=== PATIENT | male | born 1955 | race Caucasian/White ===

== ENCOUNTER 2024-12-10 14:58 | Emergency (ER) | payer MEDICARE, OTHER, SELFPAY ==
[2024-12-10 15:03] VITALS: BP 206/87
[2024-12-10 15:27] VITALS: BP 174/68
[2024-12-10 15:28] VITALS: BMI 36.6
[2024-12-10 15:56] LABS: % Basophils 0.5 % (0-2); % Eosinophils 3.9 % (0-6); % Immature Granulocytes 1.5 % (0-0.5); % Lymphocytes 22.4 % (20.5-51.1); % Monocytes 9.6 % (1.7-9.3); % Neutrophils 62.1 % (42.2-75.2); Absolute Basophils 0.1 10^3/uL (0-0.2); Absolute Eosinophils 0.6 10^3/uL (0-0.7); Absolute Immature Granulocytes 0.2 10^3/uL (0-0.05); Absolute Lymphocytes 3.2 10^3/uL (1.2-3.4); Absolute Monocytes 1.4 10^3/uL (0.1-0.6); Hematocrit 46.3 % (39.0-52.0); Hemoglobin 15.8 g/dL (13.0-18.0); Mean Corp Hgb Conc. 34.1 g/dL (33.0-37.0); Mean Platelet Volume 10.5 fL (7.4-10.4); Nucleated Red Blood Cells % 0 % (-); Platelet Count 288 10^3/uL (130-400); Red Blood Cell Count 5.26 10^6/uL (4.70-6.10); Red Cell Dist. Width 13.9 % (11.5-14.5); White Blood Cell Count 14.5 10^3/uL (4.8-10.8)
[2024-12-10 15:58] LABS: ALT (SGPT) 26 U/L (0-50); AST (SGOT) 18 U/L (17-59); Albumin 3.6 g/dl (3.5-5.0); Alkaline Phosphatase 84 U/L (38-126); Blood Urea Nitrogen 23 mg/dl (9-20); Calcium 9.2 mg/dl (8.4-10.2); Carbon Dioxide 27 mmol/L (22-30); Chloride 109 mmol/L (98-107); Estimated Creatinine Clearance 110 ml/min; Glucose 122 mg/dl (70-99); Potassium 3.7 mmol/L (3.5-5.1); Sodium 141 mmol/L (135-145); Total Bilirubin 0.7 mg/dl (0.2-1.3); Total Protein 6.1 g/dl (6.3-8.2); eGFR > 60.00
[2024-12-10 16:00] VITALS: BP 156/60
--- NOTE | 2024-12-10 16:01 | ED.GENMED ---
History of Present Illness
General
Chief Complaint: Chest Pain
Source: patient
Exam Limitations: none
Time Seen by Provider: 12/10/24 15:48
History of Present Illness
History of Present Illness:
69yoM with a history of coronary artery disease s/p PCIx2, hypertension, hyperlipidemia, type 2 diabetes, obesity, MILLI presenting for evaluation of chest pain. Symptoms began around noon today while he was sitting on the couch. He reports a
non-radiating pain in his left upper chest which feels like a burning/pinching pain. Pain is intermittent and lasts 1 to 2 seconds before resolving. Nothing seems to make the pain better or worse. Specifically, he denies any exertional symptoms.
He denies any associated diaphoresis, dizziness, nausea, shortness of breath. He follows with Dr. Turner.
Past History
Past History
ED Past Medical History: Asthma, CAD, HTN, Hypercholesterolemia, Other (Sleep apnea) and Other (Chronic sinusitis); Negative [place]
ED Past Surgical History: Cardiac (PTCA with stent, 2007) and Orthopedic (Rotator cuff repair 10/2010)
Social History
Tobacco: Non-smoker
Alcohol: None
Personal:
Living: with family
Employment: Employed
Family History
Family History: Hypertension; Negative Early CAD or Sudden
Phy Exam
General Physical Exam
General Presentation: well appearing and no apparent distress
General age: appears stated age
General Skin: warm and dry
General Habitus: normal
General Mental: alert
ENT Exam
ENT Exam: normocephalic
Cardiovascular Exam
Cardiovascular Exam: no murmur, normal peripheral pulses (2+ radial pulse bilaterally) and bradycardia
Pulmonary Exam
Pulmonary Exam: lungs clear, no respiratory distress, no rales, no crackles, no rhonchi and no wheezing
Neurological Exam
Neurological Exam: alert
[place] Coma Scale
Eye Opening: Spontaneous
Verbal Response: Oriented
Motor Response: Obeys Commands
GCS Total Score: 15
Skin Exam
Skin Exam: normal color and warm/dry
Psychiatric Exam
Psychiatric Exam: normal mood/affect
Scores
Heart Score for Chest Pain Patients
STEMI patient?: No
History: Moderately Suspicious
ECG: Normal
Age: >/= 65 years
Risk Factors: >/= 3 Risk Factors or History of CAD
Troponin: </= Normal Limit
Heart Score for Chest Pain Patients: 5
Heart Score Risk: 20.3% MACE over next 6 weeks
Course
Orders/Labs/Results
Orders:
Orders
12/10/24 14:58
ECG [Electrocardiogram (*1)] Urgent
Reason for Study: Chest Pain
EKG- Treatment ONCE
12/10/24 15:24
Cardiac Monitoring- Treatment ONCE
IV Insert/Care/Rem.- Treatment PRN
O2 Therapy [RESP] Urgent
Titrate/Wean O2 to maintain O2 sat greater than (%): 90
Special Instructions: Maintain sats >/=90%
Pulse Ox/spot Check [RESP] Urgent
Quantity: 1
Special Instructions: ON ROOM AIR
12/10/24 15:34
Complete Blood Count/With Diff Urgent
Comprehensive Metabolic Panel Urgent
Troponin I Urgent
12/10/24 16:02
Cardiac Monitoring- Treatment ONCE
CR Chest - 2 Views Urgent
Comment:
Reason For Exam: CP
12/10/24 16:34
EKG- Treatment ONCE
12/10/24 18:21
Troponin I Urgent
12/10/24 18:30
Electrocardiogram (*1) Urgent
Reason for Study: Chest Pain
Abnormal Lab Results
12/10/24
15:34
WBC 14.5 H 10^3/uL
(4.8-10.8)
MPV 10.5 H fL
(7.4-10.4)
Abs Immat Gran (auto) 0.2 H 10^3/uL
(0-0.05)
Absolute Neuts (auto) 9.0 H 10^3/uL
(1.4-6.5)
Absolute Monos (auto) 1.4 H 10^3/uL
(0.1-0.6)
Immature Gran % 1.5 H %
(0-0.5)
Monocytes % 9.6 H %
(1.7-9.3)
Chloride 109 H mmol/L
(98-107)
BUN 23 H mg/dl
(9-20)
Glucose 122 H mg/dl
(70-99)
Total Protein 6.1 L g/dl
(6.3-8.2)
12/10/24 15:34
12/10/24 15:34
Vital Signs
Initial and Last Documented VS:
Initial Vital Signs
Temp Pulse Resp BP Pulse Ox
97.6 F 52 16 206/87 99
12/10/24 15:03 12/10/24 15:03 12/10/24 15:03 12/10/24 15:03 12/10/24 15:03
Last Documented Vital Signs
Temp Pulse Resp BP Pulse Ox
98.6 F 50 17 165/66 99
12/10/24 17:00 12/10/24 19:00 12/10/24 19:00 12/10/24 19:00 12/10/24 15:03
MDM/Problems Addressed
Differential Diagnosis Includes:
69yoM here with intermittent pinching L chest pain since noon today. Lasts a few seconds at a time and comes on randomly. Otherwise asymptomatic. Hx of CAD. He is hypertensive on arrival with otherwise stable vitals. He is well appearing in no
distress. Exam reassuring. Differential diagnosis includes but is not limited to: ACS, angina, musculoskeletal, nonspecific chest pain
Initial ED plan: Check cardiac labs, EKG, and CXR.
*EKG
Interpreted by ED Provider?: Yes
EKG Intrepretation Date: 12/10/24
Heart Rate: 50
Rate: bradycardiac
Rhythm: sinus
[place]: normal axis
Interval: normal interval
QRS Pattern: normal QRS
Ischemia: no ischemia
*Critical Care Note
Total Time (30-74mins, 75-104mins- exclusive of procedures): Not Applicable
Update Note
Update Note:
EKG shows sinus bradycardia without ischemic changes and troponin WNL. CXR is clear. Repeat troponin/EKG performed at 3 hours unchanged. Symptoms have completely resolved on reassessment. He is persistently bradycardic with HR in the 40-50 range. No
associated hypotension or dizziness. His heart rate was also low at his recent PCP visit. He is currently on metoprolol 25mg BID. He was advised to hold his evening dose tonight and call his ethyl blender tomorrow morning for f/u. ED return
precautions reviewed. Patient in agreement with plan and was discharged in stable condition.
ED Attending Note
-
Portions of this chart may have been created with voice recognition software.� Occasional wrong word or��sound alike� substitutions may have occurred due to the inherent limitations of voice recognition software.
Discharge Plan
Departure
Patient Disposition: Home (Routine Discharge)
Date of Disposition: 12/10/24
Time of Disposition: 19:07
Patient with high blood pressure during this ER visit?: Yes
Discharge Problem:
Chest pain, Sinus bradycardia
Instructions: Chest pain
Prescriptions:
No Action
loratadine [Claritin] 10 MG tablet
10 mg PO DAILY
multivitamin with folic acid [Tab-A-Galilea] 1 TABLET tablet
1 tab PO DAILY
amlodipine 5 MG tablet
10 mg PO DAILY
allopurinol 300 MG tablet
300 mg PO DAILY
lisinopril 40 MG tablet
40 mg PO DAILY
docosahexaenoic acid-epa 1 CAP capsule
1,000 mg PO DAILY
aspirin 81 MG tablet,chewable
81 mg PO DAILY
metoprolol tartrate 25 MG tablet
25 mg PO BID
atorvastatin 40 MG tablet
80 mg PO HS
isosorbide mononitrate 30 MG tablet extended release 24 hr
30 mg PO DAILY Qty: 30 5RF
Referrals:
Dayton Suarez MD [Family Provider] -
Activity Restrictions/Additional Instructions:
Hold your evening dose of metoprolol.
Please call your ethyl blender tomorrow for follow-up. Return to the ER with any new or worsening symptoms.
Interventions
Interventions:
*Risk Screen - Suicide Last Done: 12/10/24 15:03
*General Assessment Last Done: 12/10/24 15:03
*Neglect/Abuse Screening Last Done: 12/10/24 15:03
*Nursing Disposition Last Done: 12/10/24 19:22
ED- Cardiac Assessment Last Done: 12/10/24 17:01
Discharge Date and Time
Discharge Date/Time: 12/10/24 19:22
Print Language: YORUBA
[2024-12-10 16:10] LABS: Troponin I < 0.012 ng/ml
[2024-12-10 17:12] VITALS: BP 172/57
[2024-12-10 18:00] VITALS: BP 156/58
[2024-12-10 18:54] LABS: Troponin I < 0.012 ng/ml
[2024-12-10 19:00] VITALS: BP 165/66
== END 2024-12-10 19:22 | disposition home or self-care (01) ==
LOC: EMR 14:58
PROVIDERS: Physician Assistant; EMERGENCY PHYSICIAN Emergency Medicine; FAMILY PHYSICIAN Family Medicine
DX: R07.9 Chest pain, unspecified (principal); R00.1 Bradycardia, unspecified; I25.10 Atherosclerotic heart disease of native coronary artery without angina pectoris; E78.00 Pure hypercholesterolemia, unspecified; I10 Essential (primary) hypertension; J45.909 Unspecified asthma, uncomplicated; Z95.5 Presence of coronary angioplasty implant and graft; E11.9 Type 2 diabetes mellitus without complications; G47.33 Obstructive sleep apnea (adult) (pediatric)
CPT/HCPCS: 99285; 71046; 80053; 84484; 85025; 93005

== ENCOUNTER → 2024-12-30 07:57 | Outpatient (REF) | payer MEDICARE, OTHER, SELFPAY | LOC: HWRCS 07:57 | PROVIDERS: ATTENDING PHYSICIAN Physician Assistant Medical | DX: R07.9 Chest pain, unspecified (principal); I25.10 Atherosclerotic heart disease of native coronary artery without angina pectoris | CPT/HCPCS: 93306 ==

== ENCOUNTER 2025-01-02 15:09 | Inpatient (IN) | payer MEDICARE, OTHER, SELFPAY ==
[2025-01-02] VITALS (10 sets, daily range): BP systolic 120–191; BP diastolic 50–85; BMI 36.3
[2025-01-02 11:45] LABS: Hemoglobin 15.8 g/dL (13.0-18.0); Mean Corp Hgb Conc. 34.3 g/dL (33.0-37.0); Mean Corpuscular Hgb 30.3 pg (27.0-31.0); Mean Corpuscular Volume 88.3 fL (80.0-94.0); Mean Platelet Volume 10.3 fL (7.4-10.4); Platelet Count 404 10^3/uL (130-400); Red Blood Cell Count 5.21 10^6/uL (4.70-6.10); Red Cell Dist. Width 13.3 % (11.5-14.5); White Blood Cell Count 26.4 10^3/uL (4.8-10.8)
--- NOTE | 2025-01-02 11:56 | ED.GENMED ---
History of Present Illness
<Celestino Brower Jr., PA-C - Last Filed: 01/03/25 18:42>
General
Chief Complaint: Chest Pain
Source: patient
Exam Limitations: none
Time Seen by Provider: 01/02/25 11:44
Nursing documentation reviewed up to this point in time: agreed with
History of Present Illness
History of Present Illness:
69-year-old male past medical history of CAD status post 2 stents over a decade ago hypertension hyperlipidemia presenting to the emergency department today with concerns of a left-sided chest pressure that started this morning. Also had some
palpitations last night. He claims that his heart rates been in the 110s and low 100s since last night after taking his trash out. Denies any significant shortness of breath nausea vomiting diaphoresis. Recently started hydrochlorothiazide over
the past week and has been checking his blood pressure over the past week with pressures in the 160s over 90s. He took a baby aspirin at home. He denies any recent trauma surgery immobilization, new leg swelling history of blood clots
Past History
<Celestino Brower Jr., PA-C - Last Filed: 01/03/25 18:42>
Past History
ED Past Medical History: Asthma, CAD, HTN, Hypercholesterolemia, Other (Sleep apnea) and Other (Chronic sinusitis); Negative DE
ED Past Surgical History: Cardiac (PTCA with stent, 2007) and Orthopedic (Rotator cuff repair 10/2010)
Social History
Tobacco: Non-smoker
Alcohol: None
Personal:
Living: with family
Employment: Employed
Family History
Family History: Hypertension; Negative Early CAD or Sudden
Review of Systems
<Celestino Brower Jr., PA-C - Last Filed: 01/03/25 18:42>
Review of Systems
Allergies reviewed?: Yes
All Other Systems: ROS reviewed and negative except as documented in HPI and ROS
Phy Exam
<Celestino Brower Jr., PA-C - Last Filed: 01/03/25 18:42>
Physical Exam
Physical Exam:
GENERAL: Alert , in no apparent distress
EYE: pupils equal and reactive
NECK: Supple, no significant adenopathy.
ENT: o/p clr, mmm.
CARDIAC: Regular rate and rhythm .
LUNGS: Clear breath sounds bilaterally, no acute respiratory distress, no wheezes/rales/rhonchi
ABDOMEN: Soft, without focal tenderness, no r/g, no cvat
NEUROLOGICAL: Alert and oriented, no focal neuro deficits
SKIN: Warm and dry, skin intact.
MUSCULOSKELETAL: No edema, well perfused.
PSYCH: Normal and appropriate interaction.
Scores
<Celestino Brower Jr., PA-C - Last Filed: 01/03/25 18:42>
Heart Score for Chest Pain Patients
STEMI patient?: Not applicable
Course
<Celestino Brower Jr., PA-C - Last Filed: 01/03/25 18:42>
Orders/Labs/Results
Orders:
Orders
01/02/25 Breakfast
Clear Liquid
At Your Request: Full Participation
01/02/25 10:45
ECG [Electrocardiogram (*1)] Urgent
Reason for Study: Chest Pain
EKG- Treatment ONCE
01/02/25 11:30
O2 Therapy [RESP] Urgent
Titrate/Wean O2 to maintain O2 sat greater than (%): 90
Special Instructions: Maintain sats >/=90%
01/02/25 11:32
Complete Blood Count/With Diff Urgent
Comprehensive Metabolic Panel Urgent
Troponin I Urgent
01/02/25 11:52
EKG [Electrocardiogram (*1)] Urgent
Reason for Study: Chest Pain
EKG- Treatment ONCE
Aspirin 325 mg PO NOW STA
Chest X-ray Portable [CR Chest Portable - 1 View] Urgent
Comment:
Reason For Exam: cp
Reason Study Needs to be Portable: Patient Unstable
01/02/25 12:55
Heparin 4,000 units IV NOW STA
01/02/25 12:[address] Non Medication Order As Directed
Physician Order: PTT 6 hours after initial start of Heparin infusion
Above order entered?: Yes
01/02/25 13:00
Heparin [id number] Units/250 ml 25,000 units in 250 ml IV PER PROTOCOL
Weight to be used for heparin protocol in kilograms (kg):: 102
Protocol:: Cardiac Tx/Acute Coronary
PTT Goal Range to be used:: PTT 73 to 111 seconds
Order type:: Initial
INITIAL Infusion Dose (UNITS/KG/hr) & then follow protocol:: 12 units/kg/hr
Infusion Dose in UNITS/hr & then follow protocol (UNITS/hr):: 1,000
INFUSION RATE in mL/hr & then follow protocol (mL/hr):: 10
PTT less than or equal to 64 seconds:: Increase rate by 200 units/hr (+ 2 mL/hr)
PTT 64.1 to 72.9 seconds:: Increase rate by 100 units/hr (+ 1 mL/hr)
PTT 73 to 111 seconds:: Target Range. No change in rate.
PTT 111.1 to 130.9 seconds:: Decrease rate by 100 units/hr (- 1 mL/hr)
PTT 131 to 199.9 seconds:: HOLD for 1 hr. Then decrease rate by 200 units/hr (- 2 mL/hr)
PTT greater than or equal to 200 seconds:: HOLD for 2 hrs & Notify Provider. Then decrease by 200 units/hr (-
2 mL/hr)
Lab follow-up:: Each change, PTT q6h until 2 consecutive are therapeutic. Then PTT
daily.
01/02/25 13:08
PTT Urgent
Comment: Obtain baseline before beginning heparin infusion if not already collected
01/02/25 13:28
Metoprolol [Lopressor] 5 mg IV NOW STA
01/02/25 13:46
Electrocardiogram (*1) Urgent
Reason for Study: Chest Pain
01/02/25 13:49
Troponin I Urgent
01/02/25 14:32
0.9% Sodium Chloride 250 ml [Nss] 250 ml IV BOLUS
01/02/25 14:35
Admit/Transfer Patient As Directed
Co-Sign Provider:
Level of Care: Inpatient admission
Assign to:: Telemetry
Physician / Group: charles alaniz
Diagnosis: chest pain
Reason for Telemetry: Chest Pain syndromes
Date to Stop Telemetry: 01/04/25
Time to Stop Telemetry: 11:00
Reason for Hospitalization: chest pain
Expected length of stay greater than two midnights?: Yes
ELOS- Estimated Length of Stay in days: 3
I certify the patient meets the requirements for IP care: Yes
PRN Pain Medication Management As Directed
May give lesser potent ordered pain med per pt: Yes
preference::
Protocol:: Medication orders for pain may be administered in a
manner that supports deferring to patient preference
when the pt is:
- Requesting an ordered lesser potent pain medication.
Least to most potent pain medications are defined
as: acetaminophen < NSAID < tramadol < opioids
(morphine, oxycodone, hydromorphone).
- Requesting a lesser dose of the same medication IF
ORDERED.
- Requesting a less intrusive route of administration
if both routes are prescribed by the provider (PO <
IV).
01/02/25 14:36
Code Status As Directed
Resuscitation Status: Full Code
01/02/25 15:43
Lactic Acid Stat
01/02/25 16:28
Electrocardiogram (*1) Q6H
Reason for Study: Chest Pain
Comment: at admission and Q3H for total of 3, to be done with each troponin
Dextrose 50%-Water [Dextrose 50% Syringe] 12.5 grams IV [id number] PRN
Glucagon [GlucaGen] 1 mg IM PRN PRN
01/02/25 16:28
CARDIOLOGY CONSULT Routine
Consulting Provider: Doug Murray
Was physician already notified: Yes
Heparin Protocol- PTT Orders As Directed
PTT per Heparin protocol: -Obtain CBC and baseline PTT - if not already collected.
-Obtain PTT 6 hours from start of infusion. Then, every 6 hours until 2 consecutive
PTT's are therapeutic. Then, PTT Daily.
-With each rate change, obtain PTT every 6 hours until 2 consecutive PTT's are
therapeutic. Then, PTT Daily.
Activity As Directed
Activity Level: As Tolerated
Bedside Glucose Monitoring As Directed
Frequency: AC&HS
Additional Instructions:: Change to q6h if pt on TPN, tube feeding or not eating
INT (Intravenous Needle Therapy) As Directed
Comment: maintain peripheral IV access
Intake/ Output As Directed
Frequency: Per unit guidelines
Notify MD As Directed
Notify physician if: PTT is greater than or equal to 200.
Vital Signs As Directed
Frequency: q4h
Weight As Directed
Frequency: Daily
01/02/25 16:30
Insulin Aspart Corrective Mod [Novolog Flexpen-Moderate Resistance] See Protocol SC AC
01/02/25 17:47
Troponin I Q3H
Comment: at admit & Q3H for 3 total including ED draws, obtain ECG with each level
01/02/25 19:59
Troponin I Q3H
Comment: at admit & Q3H for 3 total including ED draws, obtain ECG with each level
01/02/25 22:00
Atorvastatin [Lipitor] 80 mg PO HS
01/02/25 23:22
Troponin I Q3H
Comment: at admit & Q3H for 3 total including ED draws, obtain ECG with each level
01/03/25 03:22
Basic Metabolic Panel IN AM
Cardiovascular Evaluation IN AM
Complete Blood Count/No Diff IN AM
Glycohemoglobin (HgbA1c) IN AM
01/03/25 04:28
Electrocardiogram (*1) Q6H
Reason for Study: Chest Pain
Comment: at admission and Q3H for total of 3, to be done with each troponin
01/03/25 08:00
Allopurinol [Zyloprim] 300 mg PO DAILY
Amlodipine [Norvasc] 10 mg PO DAILY
Aspirin Chewable [Low Strength Aspirin] 81 mg PO DAILY
Lisinopril [Zestril] 40 mg PO DAILY
01/04/25 06:00
Basic Metabolic Panel IN AM
Complete Blood Count/No Diff IN AM
Complete Blood Count/No Diff Q2D
Comment: notify provider: Platelet count < 130,000 or decrease by 50% from baseline
01/04/25 11:00
DC Protocol for Telemetry ONCE
01/05/25 06:00
Basic Metabolic Panel IN AM
Complete Blood Count/No Diff IN AM
01/06/25 06:00
Basic Metabolic Panel IN AM
Complete Blood Count/No Diff IN AM
Complete Blood Count/No Diff Q2D
Comment: notify provider: Platelet count < 130,000 or decrease by 50% from baseline
01/07/25 06:00
Basic Metabolic Panel IN AM
01/08/25 06:00
Complete Blood Count/No Diff Q2D
Comment: notify provider: Platelet count < 130,000 or decrease by 50% from baseline
01/10/25 06:00
Complete Blood Count/No Diff Q2D
Comment: notify provider: Platelet count < 130,000 or decrease by 50% from baseline
01/12/25 06:00
Complete Blood Count/No Diff Q2D
Comment: notify provider: Platelet count < 130,000 or decrease by 50% from baseline
01/14/25 06:00
Complete Blood Count/No Diff Q2D
Comment: notify provider: Platelet count < 130,000 or decrease by 50% from baseline
01/16/25 06:00
Complete Blood Count/No Diff Q2D
Comment: notify provider: Platelet count < 130,000 or decrease by 50% from baseline
01/18/25 06:00
Complete Blood Count/No Diff Q2D
Comment: notify provider: Platelet count < 130,000 or decrease by 50% from baseline
Abnormal Lab Results
01/02/25 01/02/25
11:32 13:49
WBC 26.4 H 10^3/uL
(4.8-10.8)
Plt Count 404 H 10^3/uL
(130-400)
Abs Immat Gran (auto) 0.3 H 10^3/uL
(0-0.05)
Absolute Neuts (auto) 24.1 H 10^3/uL
(1.4-6.5)
Absolute Lymphs (auto) 1.0 L 10^3/uL
(1.2-3.4)
Absolute Monos (auto) 0.9 H 10^3/uL
(0.1-0.6)
Immature Gran % 1.1 H %
(0-0.5)
Neutrophils % 91.4 H %
(42.2-75.2)
Lymphocytes % 3.8 L %
(20.5-51.1)
Chloride 108 H mmol/L
(98-107)
Carbon Dioxide 15 L mmol/L
(22-30)
BUN 35 H mg/dl
(9-20)
Glucose 283 H mg/dl
(70-99)
Troponin I 0.085 H* ng/ml 0.146 H* D ng/ml
01/02/25 11:32
01/02/25 11:32
Vital Signs
Initial and Last Documented VS:
Initial Vital Signs
Temp Pulse Resp BP Pulse Ox
97.6 F 118 22 191/85 96
01/02/25 10:52 01/02/25 10:52 01/02/25 10:52 01/02/25 10:52 01/02/25 10:52
Last Documented Vital Signs
Temp Pulse Resp BP Pulse Ox
97.8 F 56 16 142/63 96
01/03/25 16:07 01/03/25 16:07 01/03/25 16:07 01/03/25 16:07 01/03/25 16:07
<Nick Ching, DO - Last Filed: 01/02/25 13:31>
Orders/Labs/Results
Orders:
Orders
01/02/25 Breakfast
Clear Liquid
At Your Request: Full Participation
01/02/25 10:45
ECG [Electrocardiogram (*1)] Urgent
Reason for Study: Chest Pain
EKG- Treatment ONCE
01/02/25 11:30
O2 Therapy [RESP] Urgent
Titrate/Wean O2 to maintain O2 sat greater than (%): 90
Special Instructions: Maintain sats >/=90%
01/02/25 11:32
Complete Blood Count/With Diff Urgent
Comprehensive Metabolic Panel Urgent
Troponin I Urgent
01/02/25 11:52
EKG [Electrocardiogram (*1)] Urgent
Reason for Study: Chest Pain
EKG- Treatment ONCE
Aspirin 325 mg PO NOW STA
Chest X-ray Portable [CR Chest Portable - 1 View] Urgent
Comment:
Reason For Exam: cp
Reason Study Needs to be Portable: Patient Unstable
01/02/25 12:55
Heparin 4,000 units IV NOW STA
01/02/25 12:[address] Non Medication Order As Directed
Physician Order: PTT 6 hours after initial start of Heparin infusion
Above order entered?: Yes
01/02/25 13:00
Heparin [id number] Units/250 ml 25,000 units in 250 ml IV PER PROTOCOL
Weight to be used for heparin protocol in kilograms (kg):: 102
Protocol:: Cardiac Tx/Acute Coronary
PTT Goal Range to be used:: PTT 73 to 111 seconds
Order type:: Initial
INITIAL Infusion Dose (UNITS/KG/hr) & then follow protocol:: 12 units/kg/hr
Infusion Dose in UNITS/hr & then follow protocol (UNITS/hr):: 1,000
INFUSION RATE in mL/hr & then follow protocol (mL/hr):: 10
PTT less than or equal to 64 seconds:: Increase rate by 200 units/hr (+ 2 mL/hr)
PTT 64.1 to 72.9 seconds:: Increase rate by 100 units/hr (+ 1 mL/hr)
PTT 73 to 111 seconds:: Target Range. No change in rate.
PTT 111.1 to 130.9 seconds:: Decrease rate by 100 units/hr (- 1 mL/hr)
PTT 131 to 199.9 seconds:: HOLD for 1 hr. Then decrease rate by 200 units/hr (- 2 mL/hr)
PTT greater than or equal to 200 seconds:: HOLD for 2 hrs & Notify Provider. Then decrease by 200 units/hr (-
2 mL/hr)
Lab follow-up:: Each change, PTT q6h until 2 consecutive are therapeutic. Then PTT
daily.
01/02/25 13:08
PTT Urgent
Comment: Obtain baseline before beginning heparin infusion if not already collected
01/02/25 13:28
Metoprolol [Lopressor] 5 mg IV NOW STA
01/02/25 13:46
Electrocardiogram (*1) Urgent
Reason for Study: Chest Pain
01/02/25 13:49
Troponin I Urgent
01/02/25 14:32
0.9% Sodium Chloride 250 ml [Nss] 250 ml IV BOLUS
01/02/25 14:35
Admit/Transfer Patient As Directed
Co-Sign Provider:
Level of Care: Inpatient admission
Assign to:: Telemetry
Physician / Group: charles alaniz
Diagnosis: chest pain
Reason for Telemetry: Chest Pain syndromes
Date to Stop Telemetry: 01/04/25
Time to Stop Telemetry: 11:00
Reason for Hospitalization: chest pain
Expected length of stay greater than two midnights?: Yes
ELOS- Estimated Length of Stay in days: 3
I certify the patient meets the requirements for IP care: Yes
PRN Pain Medication Management As Directed
May give lesser potent ordered pain med per pt: Yes
preference::
Protocol:: Medication orders for pain may be administered in a
manner that supports deferring to patient preference
when the pt is:
- Requesting an ordered lesser potent pain medication.
Least to most potent pain medications are defined
as: acetaminophen < NSAID < tramadol < opioids
(morphine, oxycodone, hydromorphone).
- Requesting a lesser dose of the same medication IF
ORDERED.
- Requesting a less intrusive route of administration
if both routes are prescribed by the provider (PO <
IV).
01/02/25 14:36
Code Status As Directed
Resuscitation Status: Full Code
01/02/25 15:43
Lactic Acid Stat
01/02/25 16:28
Electrocardiogram (*1) Q6H
Reason for Study: Chest Pain
Comment: at admission and Q3H for total of 3, to be done with each troponin
Dextrose 50%-Water [Dextrose 50% Syringe] 12.5 grams IV [id number] PRN
Glucagon [GlucaGen] 1 mg IM PRN PRN
01/02/25 16:28
CARDIOLOGY CONSULT Routine
Consulting Provider: Doug Murray
Was physician already notified: Yes
Heparin Protocol- PTT Orders As Directed
PTT per Heparin protocol: -Obtain CBC and baseline PTT - if not already collected.
-Obtain PTT 6 hours from start of infusion. Then, every 6 hours until 2 consecutive
PTT's are therapeutic. Then, PTT Daily.
-With each rate change, obtain PTT every 6 hours until 2 consecutive PTT's are
therapeutic. Then, PTT Daily.
Activity As Directed
Activity Level: As Tolerated
Bedside Glucose Monitoring As Directed
Frequency: AC&HS
Additional Instructions:: Change to q6h if pt on TPN, tube feeding or not eating
INT (Intravenous Needle Therapy) As Directed
Comment: maintain peripheral IV access
Intake/ Output As Directed
Frequency: Per unit guidelines
Notify MD As Directed
Notify physician if: PTT is greater than or equal to 200.
Vital Signs As Directed
Frequency: q4h
Weight As Directed
Frequency: Daily
01/02/25 16:30
Insulin Aspart Corrective Mod [Novolog Flexpen-Moderate Resistance] See Protocol SC AC
01/02/25 17:47
Troponin I Q3H
Comment: at admit & Q3H for 3 total including ED draws, obtain ECG with each level
01/02/25 19:59
Troponin I Q3H
Comment: at admit & Q3H for 3 total including ED draws, obtain ECG with each level
01/02/25 22:00
Atorvastatin [Lipitor] 80 mg PO HS
01/02/25 23:22
Troponin I Q3H
Comment: at admit & Q3H for 3 total including ED draws, obtain ECG with each level
01/03/25 03:22
Basic Metabolic Panel IN AM
Cardiovascular Evaluation IN AM
Complete Blood Count/No Diff IN AM
Glycohemoglobin (HgbA1c) IN AM
01/03/25 04:28
Electrocardiogram (*1) Q6H
Reason for Study: Chest Pain
Comment: at admission and Q3H for total of 3, to be done with each troponin
01/03/25 08:00
Allopurinol [Zyloprim] 300 mg PO DAILY
Amlodipine [Norvasc] 10 mg PO DAILY
Aspirin Chewable [Low Strength Aspirin] 81 mg PO DAILY
Lisinopril [Zestril] 40 mg PO DAILY
01/04/25 06:00
Basic Metabolic Panel IN AM
Complete Blood Count/No Diff IN AM
Complete Blood Count/No Diff Q2D
Comment: notify provider: Platelet count < 130,000 or decrease by 50% from baseline
01/04/25 11:00
DC Protocol for Telemetry ONCE
01/05/25 06:00
Basic Metabolic Panel IN AM
Complete Blood Count/No Diff IN AM
01/06/25 06:00
Basic Metabolic Panel IN AM
Complete Blood Count/No Diff IN AM
Complete Blood Count/No Diff Q2D
Comment: notify provider: Platelet count < 130,000 or decrease by 50% from baseline
01/07/25 06:00
Basic Metabolic Panel IN AM
01/08/25 06:00
Complete Blood Count/No Diff Q2D
Comment: notify provider: Platelet count < 130,000 or decrease by 50% from baseline
01/10/25 06:00
Complete Blood Count/No Diff Q2D
Comment: notify provider: Platelet count < 130,000 or decrease by 50% from baseline
01/12/25 06:00
Complete Blood Count/No Diff Q2D
Comment: notify provider: Platelet count < 130,000 or decrease by 50% from baseline
01/14/25 06:00
Complete Blood Count/No Diff Q2D
Comment: notify provider: Platelet count < 130,000 or decrease by 50% from baseline
01/16/25 06:00
Complete Blood Count/No Diff Q2D
Comment: notify provider: Platelet count < 130,000 or decrease by 50% from baseline
01/18/25 06:00
Complete Blood Count/No Diff Q2D
Comment: notify provider: Platelet count < 130,000 or decrease by 50% from baseline
Abnormal Lab Results
01/02/25 01/02/25
11:32 13:49
WBC 26.4 H 10^3/uL
(4.8-10.8)
Plt Count 404 H 10^3/uL
(130-400)
Abs Immat Gran (auto) 0.3 H 10^3/uL
(0-0.05)
Absolute Neuts (auto) 24.1 H 10^3/uL
(1.4-6.5)
Absolute Lymphs (auto) 1.0 L 10^3/uL
(1.2-3.4)
Absolute Monos (auto) 0.9 H 10^3/uL
(0.1-0.6)
Immature Gran % 1.1 H %
(0-0.5)
Neutrophils % 91.4 H %
(42.2-75.2)
Lymphocytes % 3.8 L %
(20.5-51.1)
Chloride 108 H mmol/L
(98-107)
Carbon Dioxide 15 L mmol/L
(22-30)
BUN 35 H mg/dl
(9-20)
Glucose 283 H mg/dl
(70-99)
Troponin I 0.085 H* ng/ml 0.146 H* D ng/ml
01/02/25 11:32
01/02/25 11:32
Vital Signs
Initial and Last Documented VS:
Initial Vital Signs
Temp Pulse Resp BP Pulse Ox
97.6 F 118 22 191/85 96
01/02/25 10:52 01/02/25 10:52 01/02/25 10:52 01/02/25 10:52 01/02/25 10:52
Last Documented Vital Signs
Temp Pulse Resp BP Pulse Ox
97.8 F 56 16 142/63 96
01/03/25 16:07 01/03/25 16:07 01/03/25 16:07 01/03/25 16:07 01/03/25 16:07
<Celestino Brower Jr., PA-C - Last Filed: 01/03/25 18:42>
MDM/Problems Addressed
MDM/Problems Addressed:
69-year-old male presenting to the emergency today with concerns of left-sided chest pressure that occurred this morning. Also had some palpitations last night and elevated heart rate since last night when he took his trash out. On arrival here
tachycardic around 110 initially hypertensive but improving without specific treatment. Patient no obvious distress normal heart and lung exam no reproducible pain. Initial blood work showing white count 26.4. Troponin elevated. At this point
patient already received aspirin Case discussed with cardiology and patient started on heparin. Symptoms now resolved after receiving aspirin.
<Nick Ching DO - Last Filed: 01/02/25 13:31>
*Critical Care Note
Total Time (30-74mins, 75-104mins- exclusive of procedures): 33 min
comment:
The high probability of a clinically significant, sudden or life threatening deterioration of the cardiovascular system(s) required my full and direct attention, intervention and personal management. The aggregate critical care time was 33 minutes.
This time is in addition to time spent performing reported procedures but includes the following:
[x] Data Review and interpretation
[x] Patient assessment and monitoring of vital signs
[x] Documentation
[x] Medication orders and management
ED Attending Note
<Celestino Brower Jr., PA-C - Last Filed: 01/03/25 18:42>
-
Portions of this chart may have been created with voice recognition software.� Occasional wrong word or��sound alike� substitutions may have occurred due to the inherent limitations of voice recognition software.
<Nick Ching DO - Last Filed: 01/02/25 13:31>
ED Attending Note
Patient seen and examined by attending physician: Yes
I performed the substantive portion of visit, reviewed & personally made and approve the management plan that is documented in note by myself or ANTHONY.: Yes
ED Attending Note:
I have seen and evaluated the patient with a [id number] encounter. I have spoken to the advance practicer provider and involved in the medical history, the physical exam, medical decision making.
Evaluation and management service: agree unless noted differently below.
Results interpretation: agree unless noted differently below.
Focused HPI: 69-year-old male presenting with exertional chest discomfort and palpitations. Patient was evaluated a few weeks ago with similar symptoms but they have resolved and his workup was negative. Since then, he received an outpatient
echocardiogram. His primary care doctor had taken him off Lopressor due to bradycardic issues.
Physical exam: Sitting in bed comfortable. No leg edema. Mild tachycardia
Medical Decision Making: EKG is nonspecific but troponin is mildly elevated. Currently, he is symptom-free. He is tachycardic and will give dose of metoprolol. Will have cardiology evaluate for exertional symptoms with elevated troponin. Will
start heparin
Discharge Plan
Departure
Patient Disposition: Admit
Date of Disposition: 01/02/25
Time of Disposition: 14:35
Admit to: Telemetry
Admit to doctor: Sarah
Presentation/result/management discussed w/ accepting MD/DO: Hospitalist
Patient with high blood pressure during this ER visit?: No
Condition: Good
Covid-19: Not Applicable
Discharge Problem:
Chest pain
Interventions
Interventions:
*Risk Screen - Suicide Last Done: 01/02/25 17:56
*General Assessment Last Done: 01/02/25 10:52
*Neglect/Abuse Screening Last Done: 01/02/25 10:52
*ED- Fall Risk Assessment Last Done: 01/02/25 11:31
*ED COVID-19 Vaccine History Last Done: 01/02/25 17:56
*Nursing Disposition Last Done: 01/02/25 16:00
ED- Cardiac Assessment Last Done: 01/02/25 11:31
Discharge Date and Time
Discharge Date/Time: 01/02/25 16:00
[2025-01-02] MEDS: ASPIRIN 325 MG PO (11:57)
[2025-01-02 12:04] LABS: AST (SGOT) 23 U/L (17-59); Albumin 4.8 g/dl (3.5-5.0); Alkaline Phosphatase 104 U/L (38-126); Blood Urea Nitrogen 35 mg/dl (9-20); Calcium 10.1 mg/dl (8.4-10.2); Carbon Dioxide 15 mmol/L (22-30); Chloride 108 mmol/L (98-107); Estimated Creatinine Clearance 77 ml/min; Glucose 283 mg/dl (70-99); Potassium 4.3 mmol/L (3.5-5.1); Sodium 140 mmol/L (135-145); Total Bilirubin 0.7 mg/dl (0.2-1.3); Total Protein 6.9 g/dl (6.3-8.2); eGFR > 60.00
[2025-01-02 12:11] LABS: Troponin I 0.085 ng/ml
[2025-01-02 12:14] LABS: ALT (SGPT) 33 U/L (0-50)
[2025-01-02 12:48] LABS: % Basophils 0.2 % (0-2); % Immature Granulocytes 1.1 % (0-0.5); % Lymphocytes 3.8 % (20.5-51.1); % Monocytes 3.5 % (1.7-9.3); % Neutrophils 91.4 % (42.2-75.2); Absolute Immature Granulocytes 0.3 10^3/uL (0-0.05); Absolute Monocytes 0.9 10^3/uL (0.1-0.6); Absolute Neutrophils 24.1 10^3/uL (1.4-6.5); Nucleated Red Blood Cells % 0 % (-)
[2025-01-02 13:31] LABS: APTT 24.7 Sec (23.4-35.0)
[2025-01-02] MEDS: LOPRESSOR 5 MG IV (13:58)
[2025-01-02] MEDS: HEPARIN 4000 UNITS IV (13:59)
[2025-01-02] MEDS: HEPARIN 25000 UNITS/250 ML IV (14:01)
--- NOTE | 2025-01-02 14:02 | HPS.HSE ---
Family Physician
-
Family Physician: Sharron White PA-C
Chief Complaint
-
LEFT SIDED CHEST PAIN
History of Present Illness
69-year-old male past medical history of CAD status post 2 stents over a decade ago hypertension hyperlipidemia, dm presenting to the emergency department today with concerns of a left-sided chest pressure that started this morning. patient was
having palpitation last evening when he was taking the trash out. throughout the night his Heart rate remained elevated from 100-120. today His HR stabilized but started having chest heaviness as he got out of the shower. after the breakfast his
left sided chest pain intensified which made him come to the ER. for past few days, his BP was elevated. Patient was also having left knee pain for which he got a cortisone injection yesterday. Patient denies any headache, dizziness syncope.
Patient denies any fever, chills, congestion, cough. Patient denies any abdominal pain, nausea, vomiting or diarrhea. Patient denied dysuria hematuria.
Upon arrival he was noted to have elevated Trop. Patient received a dose of aspirin. Patient was also started on heparin drip.
Admitting for further management
Medical History
Past Medical History
Past Medical History: Reports Other
Additional Past Medical History:
Coronary artery disease, hypertension, hyperlipidemia, sleep apnea, chronic sinusitis
Past Surgical History: Reports Other
Additional Past Surgical History:
Cardiac stent, rotator cuff repair
Social History
Tobacco: Non-smoker
Alcohol: None
Drug: None
Personal:
Living: With Family
Family History
Family History: Not pertinent
Allergies / Home Medications
Allergies reflects when Allergies were last updated in [facility].
Home Medications with original date entered in [facility]
Allergy/Medication List:
Allergies
Allergy/AdvReac Type Severity Reaction Status Date / Time
Iodinated Contrast Media (IV Allergy sneezed Verified 01/02/25 10:55
Dye, Iodine Containing) for 30
minutes
Home Medications
loratadine 10 mg tablet (Claritin) 10 mg PO DAILY Allergies 01/07/08
multivitamin with folic acid 400 mcg tablet (Tab-A-Galilea) 1 tab PO DAILY Supplement 01/07/08
allopurinol 300 mg tablet 300 mg PO DAILY Gout 05/22/17
amlodipine 5 mg tablet 10 mg PO DAILY Blood Pressure 05/22/17
aspirin 81 mg chewable tablet 81 mg PO DAILY Blood Clot Prevention/Tx 05/22/17
lisinopril 40 mg tablet 40 mg PO DAILY Blood Pressure 05/22/17
atorvastatin 40 mg tablet 80 mg PO HS High Cholesterol 08/27/20
cholecalciferol (vitamin D3) 25 mcg (1,000 unit) tablet (Vitamin D3) 25 mcg PO DAILY Supplement 01/02/25
cyanocobalamin (vitamin B-12) 1,000 mcg tablet 1,000 mcg PO DAILY Supplement 01/02/25
empagliflozin 5 mg-metformin 500 mg tablet 1 tab PO BID Diabetes 01/02/25
hydrochlorothiazide 12.5 mg tablet 12.5 mg PO DAILY Blood Pressure 01/02/25
Review of Systems
-
Constitutional: Reports No Symptoms
EENT: Reports No Symptoms
Respiratory: Reports No Symptoms
Cardiac: Reports Chest Pain
Abdomen/GI: Reports No Symptoms
: Reports No Symptoms
Musculoskeletal: Reports No Symptoms
Skin: Reports No Symptoms
Neurological: Reports No Symptoms
Endocrine: Reports No Symptoms
Hematologic/Lymphatic: Reports No Symptoms
Psych: Reports No Symptoms
Physical Exam
Vital Signs
Vital Signs
Temp Pulse Resp BP Pulse Ox
97.6 F 107 18 134/65 93
01/02/25 10:52 01/02/25 13:30 01/02/25 13:30 01/02/25 13:00 01/02/25 13:30
Physical Exam
General: Well Developed, Well Nourished and No Apparent Distress
HEENT: NormoCephalic, Moist mucous membranes and Atraumatic
Respiratory: Clear
Cardiac: S1/S2 and Regular Rhythm; No Murmur or Rub
GI: Soft, Non Tender, Non Distended and Normal Bowel Sounds; No Organomegaly
Rectal: Deferred by Provider
Musculoskeletal: No Clubbing, No Cyanosis and No Edema
Skin: No Rash
Neuro: AO x 3 and Nonfocal/grossly intact
Psych: Calm
Laboratory Results
-
01/02/25 11:32
01/02/25 11:32
Laboratory Results
APTT 24.7 Sec (23.4-35.0) 01/02/25 13:08
Total Bilirubin 0.7 mg/dl (0.2-1.3) 01/02/25 11:32
AST 23 U/L (17-59) 01/02/25 11:32
ALT 33 U/L (0-50) 01/02/25 11:32
Alkaline Phosphatase 104 U/L (38-126) 01/02/25 11:32
Troponin I 0.085 ng/ml H* 01/02/25 11:32
Data Reviewed
-
Diagnostic Radiology: Report Reviewed by me
Lab Data: Labs Reviewed by me
Impression/Plan
-
# Acute coronary syndrome
- Troponin 0.085
- IV heparin and aspirin continued
- Cardiology consulted
- Continue to trend troponin EKG
- Chest x-ray with no acute disease
- EKG with sinus tachycardia, left ventricular hypertrophy with repolarization abnormality
# Leukocytosis likely from cortisone injection yesterday
- WBC 26.4, patient is afebrile
- Continue to trend CBC
# Anion gap metabolic acidosis likely dehydration
- Anion gap 17, CO2 15
- Normal saline 500 bolus
- Hold metformin
- Continue to monitor BMP in a.m.
# Gout
- Allopurinol continued
# Essential hypertension
- Norvasc, lisinopril continued
- Hold HCTZ
# Hyperlipidemia
- Statin continued
# Type 2 diabetes
-Sliding scale
-carb controlled diet
- Hold Jardiance/metformin
# DVT prophy
- heparin drip
# CODE STATUS
- full code
-
--- NOTE | 2025-01-02 14:09 | W.PN.UPDATE ---
Addendum entered and electronically signed by Josesito Smith MD 01/02/25 14:35:
ADDENDUM
Metabolic acidosis with AG 17
- Hold HCTZ
- Hold Metformin / Empagliflozin
- check LA
Leucocytosis s/p IAS to Lt Knee on 01/01/25 and 1 week ago
- afebrile
- Trend WCC
Original Note:
Update Note
Progress Note Update
I could not get any information from the patient as
Information gathered by chart review and speaking with the ER staff.
This note serves as an addendum to the H&P by carbon capture power plant manager ANTHONY
Yady VARGAS
HPI
69M non smoker HX CAD, PTCA with stent in 2007, HTN, Hypercholesterolemia, Other (Sleep apnea)
- acute onset of Left chest pressure since this morning
- reports palpitation since last night.
- CP improved after ASA and on Heparin by ER
Elevated trop (0.085)
Somewaht new NOS EKG changes.
No progressive EKG chnages on repeat EKG. Gryzwacs aware
Reviewed VS:
Vital Signs
Temp Pulse Resp BP Pulse Ox
97.6 F 108 18 153/68 93
01/02/25 10:52 01/02/25 13:58 01/02/25 13:30 01/02/25 13:58 01/02/25 13:30
PE
Gen: no apparent distress
HEENT: anicteric , BRANDIE
Neck: supple
Lungs: CTA
Cor: RRR S1 S2
Abdomen: benign exam
MORTGAGE OR LOAN UNDERWRITER: AAO3 , NFND
MS: no edema
Psych: appropriate
Laboratory Tests
12/10/24 12/10/24 01/02/25
15:34 18:21 11:32
WBC 14.5 H 26.4 H
Hgb 15.8 15.8
Plt Count 288 404 H
Chloride 108 H
Carbon Dioxide 15 L
BUN 35 H
eGFR > 60.00
Troponin I < 0.012 0.085 H*
EKG
SINUS TACHYCARDIA
MINIMAL VOLTAGE CRITERIA FOR LVH, MAY BE NORMAL VARIANT ( R in aVL )
SEPTAL INFARCT , AGE UNDETERMINED
ABNORMAL ECG
WHEN COMPARED WITH ECG OF 02-JAN-2025 10:48,
ST NO LONGER DEPRESSED IN LATERAL LEADS
NONSPECIFIC T WAVE ABNORMALITY HAS REPLACED INVERTED T WAVES IN LATERAL LEADS
Confirmed by MARY TALLEY MD ([id number]) on 01/02/2025 1:02:49 PM
12/30/04 TTE
Normal left ventricular size and systolic function.
No regional wall motion abnormalities are seen.
LV ejection fraction is 60-65% by visual assessment.
Moderate concentric left ventricular hypertrophy. Normal diastolic function.
Normal right ventricular size and function.
Aortic sclerosis without stenosis.
NO PRIOR hospitalist admission:
ASSESSMENT & PLAN
Lt sided CP- CP improved after ASA and on Heparin gtt by ER
Elevated trop (0.085) + Somewhat new NOS EKG changes.
No progressive EKG changes on repeat EKG.
DDX: ACS / NSTEMI
HX CAD, PTCA with stent in 2007, 2016
12/30/24 TTE 3 days ago with preserved LVEF , no WMAL, mod LVH, no hemodynamically significant valvular heart dz
- Agree with ASA and Heparin gtt
- c/w hi intensity Atorvastatin 80HS
- Trend TPNI
- clear diet for now
- DCA card consulted
Benign HTN
- c/w BANK [employer]NER Amlodipine, Lisinopril , HCTZ
DMT2
- on clear diet
- add ISS low
- Hold BANK RUNNER Empagliflozin 1 tab daily
Hypercholesterolemia
c/w hi intensity Atorvastatin 80HS
Obesity BMI 36
known MILLI
- c/w HX CPAP ( own unit)
DVT Px:on heparin gtt
Code: Full code
IP TLM
[2025-01-02 14:56] LABS: Troponin I 0.146 ng/ml
--- NOTE | 2025-01-02 15:21 | CON.CAR ---
Addendum entered and electronically signed by Doug Murray MD 01/02/25 17:14:
I saw and examined the patient.
The Unitizer's note was reviewed and I agree with the note.
Comment:
GEN: No distress, awake, Ox3
HEENT: supple, anicteric, mmm
LUNGS: CTA, no wheezes/rales
CV: Reg, S1/S2, 1/6 syst LSB, no gallop
ABD: soft, BS+, NT/ND
EXT: No edema
NEURO: Gross non-focal
SKIN: No rash
PLan:
6-year-old male with past medical history of coronary artery disease status post left circumflex PCI 2007, OM1 PCI 2016, hypertension, obesity, sleep apnea, diabetes presents with several days of chest pressure, burning, and chest pains. He was in
the emergency room in November 2024 with similar symptoms troponins were negative. At that point with bradycardia his Lopressor reduced to once a day. His blood pressure has been very labile as well. He was blood pressure was elevated he was started
on hydrochlorothiazide. Last night while ambulating he had severe chest tightness which then occurred this morning. Blood pressure was elevated upon arrival in the emergency room.
EKG with sinus tachycardia with nonspecific ST and T wave abnormalities. Neuro cardiopulmonary's are abnormal. Initial troponin 0.085, repeat 0.15. Patient was given Lopressor, aspirin, and heparin MPS pains resolved. He is currently pain-free.
I suspect this is likely a non-STEMI. Continue aspirin, IV heparin, and lisinopril. Will restart Toprol 25 mg daily. Continue amlodipine 10 mg daily.
We will follow his blood pressure and further adjust medications.
Check lipids. Continue high dose atorvastatin 80 mg daily.
With his diabetes I would hold off on Plavix/Brilinta due to possible three-vessel disease. For now continue aspirin and heparin.
We will check a transthoracic echo to reevaluate his LVEF.
Plan will be for cardiac catheterization on Sunday this admission
Original Note:
Consultation
Consultation Request
Date/Time Consultation Requested: 01/02/2025
Date/Time Consultation Performed: 01/02/2025
Requesting Provider: Dr. Smith
Performing Provider: Liliana Pascual PA-C for Dr. Murray
Reason for Consultation: Chest pain
Medical History
-
History of Present Illness:
Patient is a 69-year-old male with past medical history of coronary artery disease with left circumflex stent in July 2007, OM 1 UDAY April 2017, hypertension, mod concentric LVH, hyperlipidemia, obstructive sleep apnea on CPAP and diabetes who
presented to emergency department with palpitations and chest pain. Patient was recently seen in emergency department in November 2024 with complaints of left-sided chest burning/pinching which lasted several seconds. Troponin x 2 was negative and EKG
showed sinus bradycardia without ischemic changes. Given bradycardia it was recommended he reduce Lopressor to once a day. He was then seen in outpatient cardiology office for follow-up and was scheduled for PET/CT stress test on 01/06/2025.
Patient had been noted to be hypertensive at visit in terazosin was added for blood pressure control however patient reports he felt poorly on it and discontinued after 1 dose. He then saw his primary care physician as an outpatient who started
hydrochlorothiazide. Patient reports last evening while taking out the trash he started feeling palpitations and elevated heart rate with heart rates in the 1 teens to 120s associated with mild chest tightness. He sat down and rested chest pain
improved however palpitations and elevated heart rate continued throughout the evening. Upon awakening he noted his heart rate was still elevated but did not have chest pain. He went out to eat with a friend for breakfast and after completing his
meal and driving home he developed acute onset of chest pain which he reports was 8 out of 10 so he decided to come to emergency department. On arrival blood pressure was 191/85. EKG showed sinus tachycardia with nonspecific ST-T wave abnormality.
Initial troponin of 0.085 with repeat Troponin 0.146. Patient was provided IV Lopressor and started on heparin drip with resolution of chest pain.
At time of this evaluation patient currently chest pain-free.
Past medical history:
Coronary artery disease
Status post left circumflex stent July 2007
Status post OM1 UDAY April 2017
Hypertension
Moderate concentric LVH
Hyperlipidemia
Type 2 diabetes
Obstructive sleep apnea with CPAP
Obesity
Gout
Asthma
Past Medical History
Past Medical History: Other (See HPI)
Past Surgical History: Cardiac (left circumflex stent in July 2007, OM 1 UDAY April 2017), Cholecystectomy, Orthopedic (Knee surgeries, right rotator cuff repair) and Other (Hernia repair umbilical, hernia repair inguinal)
Social History
Tobacco: Non-Smoker
Alcohol: None
Drug: None
Personal:
Living: With Family
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
Family History
Family History: CAD (Father [place] at 42) and Other (Mother heart failure emphysema)
Allergies / Home Medications
Allergy/AdvReac Type Severity Reaction Status Date / Time
Iodinated Contrast Media (IV Allergy sneezed Verified 01/02/25 10:55
Dye, Iodine Containing) for 30
minutes
�Medication �Instructions �Recorded �Confirmed �Type
loratadine 10 mg tablet (Claritin) 10 mg PO DAILY Allergies 01/07/08 01/02/25 History
multivitamin with folic acid 400 1 tab PO DAILY Supplement 01/07/08 01/02/25 History
mcg tablet (Tab-A-Galilea)
allopurinol 300 mg tablet 300 mg PO DAILY Gout 05/22/17 01/02/25 History
amlodipine 5 mg tablet 10 mg PO DAILY Blood Pressure 05/22/17 01/02/25 History
aspirin 81 mg chewable tablet 81 mg PO DAILY Blood Clot 05/22/17 01/02/25 History
Prevention/Tx
lisinopril 40 mg tablet 40 mg PO DAILY Blood Pressure 05/22/17 01/02/25 History
atorvastatin 40 mg tablet 80 mg PO HS High Cholesterol 08/27/20 01/02/25 History
cholecalciferol (vitamin D3) 25 25 mcg PO DAILY Supplement 01/02/25 01/02/25 History
mcg (1,000 unit) tablet (Vitamin
D3)
cyanocobalamin (vitamin B-12) 1,000 mcg PO DAILY Supplement 01/02/25 01/02/25 History
1,000 mcg tablet
empagliflozin 5 mg-metformin 500 1 tab PO BID Diabetes 01/02/25 01/02/25 History
mg tablet
hydrochlorothiazide 12.5 mg tablet 12.5 mg PO DAILY Blood Pressure 01/02/25 01/02/25 History
Review of Systems
-
History Source: Patient
All other systems: Negative unless noted
Physical Exam
Vital Signs
Temp Pulse Resp BP Pulse Ox
97.6 F 90 18 132/67 94
01/02/25 10:52 01/02/25 14:45 01/02/25 14:45 01/02/25 14:00 01/02/25 14:45
GEN: No distress, awake, Ox3, sitting in bed
HEENT: supple, anicteric, mmm
LUNGS: CTA, no wheezes/rales
CV: Reg, S1/S2, no murmur, rub or gallop
ABD: Protuberant/obese, soft, BS+, NT/ND
EXT: No edema, clubbing or cyanosis
NEURO: Gross non-focal
SKIN: No rash, warm, dry, pink
Lab Results
01/02/25 11:32
01/02/25 11:32
Troponin I 0.146 ng/ml H* D 01/02/25 13:49
Impression / Plan
-
PCP:Sharron White PA-C
Apricot Packer: Hussain Turner
Impression:
Presents 01/02/2025 with chest pain and palpitations
Intermittent chest pain with abnormal troponin
Tachycardia
Leukocytosis
Metabolic acidosis
Uncontrolled hypertension
Coronary artery disease
Status post left circumflex stent July 2007
Status post OM1 UDAY April 2017
Hypertension
Moderate concentric LVH
Hyperlipidemia
Type 2 diabetes
Obstructive sleep apnea with CPAP
Obesity
Gout
Asthma
Echo 12/30/2024: EF 60 to 65% with no regional wall motion abnormality. Moderate concentric LVH. No significant valvular disease
Left heart catheterization 2020: 30 to 40% mid LAD stenosis, ostial 30% circumflex stenosis with patent circumflex/OM stents and no significant RCA disease.
Plan:
-Presents 01/02/2025 with chest pain and palpitations
- Intermittent waxing and waning chest pain for 1 month now increasing in severity
Abnormal troponin with initial of 0.085, repeat 0.146. Trend to peak. EKG demonstrated sinus tachycardia with nonspecific ST-T wave abnormality in lateral leads.
Currently chest pain-free after getting IV heparin and aspirin load
Continue IV heparin
Will need ischemic evaluation in form of cardiac catheterization on 01/05/2025. [place] text placed the charge nurse
If patient has additional chest pain would add IV nitroglycerin
Start Toprol 25 mg daily
Check limited echo (remote sensing technician notified)
Continue aspirin, atorvastatin, lisinopril
Check lipids and hemoglobin A1c in a.m.
-Uncontrolled hypertension
Blood pressure seems to be improving with IV Lopressor
Resume low-dose Toprol 25 mg
Continue amlodipine, lisinopril
-Sinus tachycardia on EKG on arrival. Patient previously had bradycardia on Lopressor 25 mg twice a day which was discontinued over the last several weeks.
Patient required IV Lopressor in emergency department with improvement of heart rate
Start Toprol 25 mg daily
-Leukocytosis of unclear etiology. Chest x-ray unremarkable no evidence of pneumonia. Afebrile. Continue to monitor and trend and workup per primary service
-Metabolic acidosis with anion gap 17
Hold HCTZ, metformin, Jardiance
Plan discussed with patient, patient's , hospitalist and nursing
Data Reviewed
-
EKG: Report Reviewed by me, Discussed with Physician, Discussed with Nurse, Discussed with Patient and Discussed with Family
Radiology: Report Reviewed by me, Discussed with Physician, Discussed with Nurse, Discussed with Patient and Discussed with Family
Labs: Labs Reviewed by me, Discussed with Physician, Discussed with Nurse, Discussed with Patient and Discussed with Family
Old Records: Reviewed
[2025-01-02] MEDS: NSS 250 IV (15:38)
[2025-01-02 16:09] LABS: Lactic Acid 2.3 mmol/L (0.7-2.0)
[2025-01-02 16:35] LABS: Glucose - Point of Care 132 mg/dl (70-99)
[2025-01-02 18:22] LABS: Troponin I 0.743 ng/ml
--- NOTE | 2025-01-02 18:34 | PTCARENOTE ---
critical troponin just came in, 0.743. Cardiology informed.
[2025-01-02] MEDS: TOPROL XL 25 MG PO (20:11)
[2025-01-02 20:23] LABS: APTT 54.1 Sec (23.4-35.0)
[2025-01-02 20:38] LABS: Troponin I 0.802 ng/ml
[2025-01-02 21:03] LABS: Glucose - Point of Care 204 mg/dl (70-99)
[2025-01-02] MEDS: LIPITOR 80 MG PO (22:34)
[2025-01-02 23:55] LABS: Troponin I 0.943 ng/ml
[2025-01-03 03:08] VITALS: BP 129/60
[2025-01-03 03:54] LABS: APTT 64.3 Sec (23.4-35.0)
[2025-01-03 05:11] LABS: Hematocrit 41.1 % (39.0-52.0); Hemoglobin 14.1 g/dL (13.0-18.0); Mean Corp Hgb Conc. 34.3 g/dL (33.0-37.0); Mean Corpuscular Hgb 30.3 pg (27.0-31.0); Mean Corpuscular Volume 88.2 fL (80.0-94.0); Mean Platelet Volume 10.3 fL (7.4-10.4); Platelet Count 344 10^3/uL (130-400); Red Blood Cell Count 4.66 10^6/uL (4.70-6.10); Red Cell Dist. Width 13.6 % (11.5-14.5); White Blood Cell Count 23.3 10^3/uL (4.8-10.8)
[2025-01-03 05:47] LABS: Troponin I 0.759 ng/ml
[2025-01-03 06:00] VITALS: BMI 35.2
[2025-01-03 06:09] LABS: Blood Urea Nitrogen 42 mg/dl (9-20); Calcium 9.3 mg/dl (8.4-10.2); Carbon Dioxide 19 mmol/L (22-30); Chloride 109 mmol/L (98-107); Estimated Creatinine Clearance 85 ml/min; Glucose 139 mg/dl (70-99); HDL Cholesterol 43 mg/dl; LDL Cholesterol, Calculated 81 mg/dl; Potassium 4.3 mmol/L (3.5-5.1); Sodium 138 mmol/L (135-145); Total Cholesterol 144 mg/dl (50-199); Triglyceride 103 mg/dl (10-149); Very Low Density Lipoprotein 20 mg/dl (0-30); eGFR > 60.00
[2025-01-03 07:45] VITALS: BP 157/62
[2025-01-03] MEDS: ZYLOPRIM 300 MG PO (08:26)
[2025-01-03 08:27] LABS: Glucose - Point of Care 136 mg/dl (70-99)
[2025-01-03] MEDS: NORVASC 10 MG PO (08:27)
[2025-01-03] MEDS: TOPROL XL 25 MG PO (08:27)
[2025-01-03] MEDS: LOW STRENGTH ASPIRIN 81 MG PO (08:27)
[2025-01-03] MEDS: ZESTRIL 40 MG PO (08:27)
[2025-01-03 09:09] LABS: APTT 95.6 Sec (23.4-35.0)
[2025-01-03 10:12] LABS: Glycohemoglobin (HgbA1c) 6.1 % (4.0-5.6)
--- NOTE | 2025-01-03 10:36 | CM ---
Reviewed the chart notes and spoke with the patient at the bedside. The patient resides with his spouse and daughter in a two story home with no steps to enter. The patient uses a CPAP machine nightly. The patient reports no VN or SNF in the
past. The patient confirmed his [facility] choice [facility]. The patient anticipates having a heart cath on Sunday. CM continues to be available to patient/family and is monitoring medical plan for needs at discharge.
Plan: Discharge to home when medically stable. No needs anticipated at this time.
[2025-01-03 12:00] VITALS: BP 157/70
--- NOTE | 2025-01-03 12:16 | W.PN.CARDCBS ---
Today's Communication / Plan
-
Cath on Sunday
Continue heparin and other medications
Impression / Plan
-
PCP:Sharron White PA-C
Industrial Sales Representative: Hussain Turner
Impression:
Presents 01/02/2025 with chest pain and palpitations
Intermittent chest pain with abnormal troponin
Tachycardia
Leukocytosis
Metabolic acidosis
Uncontrolled hypertension
Coronary artery disease
Status post left circumflex stent July 2007
Status post OM1 UDAY April 2017
Hypertension
Moderate concentric LVH
Hyperlipidemia
Type 2 diabetes
Obstructive sleep apnea with CPAP
Obesity
Gout
Asthma
Echo 12/30/2024: EF 60 to 65% with no regional wall motion abnormality. Moderate concentric LVH. No significant valvular disease
Left heart catheterization 2020: 30 to 40% mid LAD stenosis, ostial 30% circumflex stenosis with patent circumflex/OM stents and no significant RCA disease.
Plan:
Despite non-ST segment elevation RI he looks well at the present time.
Will renew heparin, continue other medications. Blood pressure is marginal, currently on lisinopril, metoprolol and amlodipine, he may need a diuretic. He had been on hydrochlorothiazide as an outpatient. He was azotemic and remained so, though
creatinine is 0.9. Jardiance and metformin are on hold.
Proceed with cardiac catheterization on Sunday
Progress Note - Industrial Sales Representative
Subjective
Date of Service: January 03, 2025:
69-year-old man with history of circumflex PCI and OM1 PCI 2016. Now with chest burning, troponin is 0 point, nonspecific ST and T wave abnormalities on electrocardiogram.
PMH: Sleep apnea, hypertension, hyperlipidemia, gout, asthma obesity, diabetes, CAD circumflex PCI in 2007, OM1 PCI 2016
Current meds: Allopurinol, amlodipine 10 mg a day, aspirin 81 mg a day, atorvastatin 80 mg a day, lisinopril 40 mg a day, metoprolol ER 25 daily
157/70, pulse 60, respirate 18, afebrile, saturations 98%, head neck exam unremarkable, lungs are clear, regular rate and rhythm, extremities without clubbing cyanosis or edema,
Echo 01/02/2025: Normal LV, normal RV, normal atria, MAC, no significant valvular disease otherwise
White is 23.3, leukocytosis though not as severe going back to the December 2007
BUN and creatinine are 42 and 0.9, potassium is 4.3, peak troponin 0.76
Objective
Labs:
01/03/25 03:22
01/03/25 03:22
Labs
Hgb 14.1 g/dL (13.0-18.0) 01/03/25 03:22
Hct 41.1 % (39.0-52.0) 01/03/25 03:22
Plt Count 344 10^3/uL (130-400) 01/03/25 03:22
APTT 95.6 Sec (23.4-35.0) H 01/03/25 08:44
Sodium 138 mmol/L (135-145) 01/03/25 03:22
Potassium 4.3 mmol/L (3.5-5.1) 01/03/25 03:22
BUN 42 mg/dl (9-20) H 01/03/25 03:22
Creatinine 0.9 mg/dL (0.7-1.3) 01/03/25 03:22
Glucose 139 mg/dl (70-99) H 01/03/25 03:22
Troponins
01/02/25 01/02/25 01/02/25
11:32 13:49 17:47
Troponin I 0.085 H* 0.146 H* D 0.743 H* D
01/02/25 01/02/25 01/03/25
19:59 23:22 03:22
Troponin I 0.802 H* 0.943 H* 0.759 H*
Vital Signs and I&O:
Vital Signs
Temp Pulse Resp BP Pulse Ox
36.6 C 60 18 157/70 98
01/03/25 12:00 01/03/25 12:00 01/03/25 12:00 01/03/25 12:00 01/03/25 12:00
Vital Signs
Temp Pulse Resp BP Pulse Ox
36.6 C 60 18 157/70 98
01/03/25 12:00 01/03/25 12:00 01/03/25 12:00 01/03/25 12:00 01/03/25 12:00
Physical Exam
Physical Exam
See above
--- NOTE | 2025-01-03 13:28 | W.PN.HOSP.TC ---
Today's Communication/Plan
-
Assessment / Plan
Assessment / Plan
NAD
Scleral Anicteric
MMM
No JVD
CTABL
RRR, S1/S2
Soft, NT, ND, BS+
Warm, Dry
AAOx3
Calm
Chest pain, resolved after receiving aspirin in the ED. Being treated as NSTEMI on IV heparin drip
Cardiology plans for [facility] Sunday
2D echocardiogram
Continue statin aspirin
NSTEMI
EKGs with troponin elevation
Telemetry
2D echo
C
Cardiology
Hyperlipidemia
Continue statin
Diabetes
Accu-Chek sliding scale goal blood glucose 140-180
Hypertension
Continue antihypertensives
Gout
Continue allopurinol
Anticipated Discharge: > 48 hours
Subjective/Interval History
-
Date of Service: January 03, 2025
Seen and examined. No new complaints. No acute overnight events.
Objective Data
-
Labs:
Laboratory Results
01/03/25 01/03/25 01/03/25
03:22 08:44 15:00
WBC 23.3 H
Hgb 14.1
Hct 41.1
Plt Count 344
APTT 64.3 H 95.6 H Pending
Sodium 138
Potassium 4.3
Chloride 109 H
Carbon Dioxide 19 L
BUN 42 H
Creatinine 0.9
Glucose 139 H
Calcium 9.3
Vital Signs:
Vital Signs
Temp Pulse Resp BP Pulse Ox
97.8 F 60 18 157/70 98
01/03/25 12:00 01/03/25 12:00 01/03/25 12:00 01/03/25 12:00 01/03/25 12:00
[2025-01-03 13:37] LABS: Glucose - Point of Care 135 mg/dl (70-99)
[2025-01-03 15:12] LABS: APTT 108.9 Sec (23.4-35.0)
[2025-01-03 16:07] VITALS: BP 142/63
[2025-01-03 17:27] LABS: Glucose - Point of Care 119 mg/dl (70-99)
[2025-01-03 19:26] VITALS: BP 141/63
[2025-01-03] MEDS: LIPITOR 80 MG PO (22:02)
[2025-01-03 22:20] LABS: Glucose - Point of Care 107 mg/dl (70-99)
[2025-01-03 23:28] VITALS: BP 127/41
[2025-01-04] MEDS: HEPARIN 25000 UNITS/250 ML IV (03:06)
[2025-01-04 03:25] VITALS: BP 129/61
[2025-01-04 06:00] VITALS: BMI 34.9
[2025-01-04 06:11] LABS: Hematocrit 40.8 % (39.0-52.0); Hemoglobin 14.4 g/dL (13.0-18.0); Mean Corp Hgb Conc. 35.3 g/dL (33.0-37.0); Mean Corpuscular Hgb 30.8 pg (27.0-31.0); Mean Corpuscular Volume 87.2 fL (80.0-94.0); Mean Platelet Volume 10.3 fL (7.4-10.4); Platelet Count 335 10^3/uL (130-400); Red Blood Cell Count 4.68 10^6/uL (4.70-6.10); Red Cell Dist. Width 13.6 % (11.5-14.5); White Blood Cell Count 17.5 10^3/uL (4.8-10.8)
[2025-01-04 06:17] LABS: APTT 113.5 Sec (23.4-35.0)
[2025-01-04 06:25] LABS: Blood Urea Nitrogen 38 mg/dl (9-20); Carbon Dioxide 21 mmol/L (22-30); Chloride 111 mmol/L (98-107); Estimated Creatinine Clearance 84 ml/min; Glucose 107 mg/dl (70-99); Potassium 4.3 mmol/L (3.5-5.1); Sodium 137 mmol/L (135-145); eGFR > 60.00
[2025-01-04 07:18] VITALS: BP 136/58
[2025-01-04 07:31] LABS: Glucose - Point of Care 102 mg/dl (70-99)
[2025-01-04] MEDS: LOW STRENGTH ASPIRIN 81 MG PO (08:08)
[2025-01-04] MEDS: ZYLOPRIM 300 MG PO (08:08)
[2025-01-04] MEDS: ZESTRIL 40 MG PO (08:09)
[2025-01-04] MEDS: NORVASC 10 MG PO (08:09)
--- NOTE | 2025-01-04 08:45 | CM ---
CM reviewed chart, plan for cardiac cath on 01/05/25. CM will continue to follow for all discharge planning needs.
Plan; Cardiac Cath Sunday
[2025-01-04] MEDS: TOPROL XL PO (09:21)
--- NOTE | 2025-01-04 09:23 | PTCARENOTE ---
Addendum entered by Marley Maldonado RN 01/04/25 10:50:
DR Tunrer from cardiology saw pt and entered parameters for Toprol. Had RN give am dose. He updated pt on changes. potential for pt to be transferred to IVU today.
Original Note:
Pt bradycardic overnight as low as 44. this morning heart rate is anywhere from 44 to 71. Current heart rate is 62. Dr Keanu Ponce was at the bedside and wants Metoprolol this morning. Pt aware and in agreement until cardiology see him.
--- NOTE | 2025-01-04 09:45 | W.PN.CARDCBS ---
Today's Communication / Plan
-
Cath tomorrow
Cont IV Heparin
beta alex with parameters
Impression / Plan
-
.
PCP:Sharron White PA-C
Medical Billing And Coding Instructor: Hussain Turner
Impression:
Presents 01/02/2025 with chest pain and palpitations
Intermittent chest pain with abnormal troponin
NSTEMI peak trop 0.9
Tachycardia
Leukocytosis
Metabolic acidosis
Uncontrolled hypertension
Coronary artery disease
Status post left circumflex stent July 2007
Status post OM1 UDAY April 2017
Hypertension
Moderate concentric LVH
Hyperlipidemia
Type 2 diabetes
Obstructive sleep apnea with CPAP
Obesity
Gout
Asthma
Echo 12/30/2024: EF 60 to 65% with no regional wall motion abnormality. Moderate concentric LVH. No significant valvular disease
Left heart catheterization 2020: 30 to 40% mid LAD stenosis, ostial 30% circumflex stenosis with patent circumflex/OM stents and no significant RCA disease.
Plan:
Cont IV Heparin
Trop peak at 0.9. For cath tomorrow January 05 2025.
Cont ACEI and Toprol with parameters and norvasc. Remain off HCTZ.
Jardiance and Metformin on hold in anticipation of cath.
Cont ASA
Echo with preserved EF
Discussed with nursing.
Progress Note - Medical Billing And Coding Instructor
Subjective
Date of Service: January 04, 2025
Pt seen and examined. No complaints. No chest pain or shortness of breath.
Objective
Labs:
01/04/25 05:33
01/04/25 05:33
Labs
Hgb 14.4 g/dL (13.0-18.0) 01/04/25 05:33
Hct 40.8 % (39.0-52.0) 01/04/25 05:33
Plt Count 335 10^3/uL (130-400) 01/04/25 05:33
APTT 113.5 Sec (23.4-35.0) H 01/04/25 05:33
Sodium 137 mmol/L (135-145) 01/04/25 05:33
Potassium 4.3 mmol/L (3.5-5.1) 01/04/25 05:33
BUN 38 mg/dl (9-20) H 01/04/25 05:33
Creatinine 0.9 mg/dL (0.7-1.3) 01/04/25 05:33
Glucose 107 mg/dl (70-99) H 01/04/25 05:33
Troponins
01/02/25 01/02/25 01/02/25
11:32 13:49 17:47
Troponin I 0.085 H* 0.146 H* D 0.743 H* D
01/02/25 01/02/25 01/03/25
19:59 23:22 03:22
Troponin I 0.802 H* 0.943 H* 0.759 H*
Vital Signs and I&O:
Vital Signs
Temp Pulse Resp BP Pulse Ox
97.8 F 50 16 136/58 94
01/04/25 07:18 01/04/25 08:09 01/04/25 07:18 01/04/25 08:09 01/04/25 07:18
Vital Signs
Temp Pulse Resp BP Pulse Ox
97.8 F 50 16 136/58 94
01/04/25 07:18 01/04/25 08:09 01/04/25 07:18 01/04/25 08:09 01/04/25 07:18
Intake & Output
01/02/25 01/03/25 01/04/25 01/05/25
06:59 06:59 06:59 06:59
Intake Total 1380 / 1380
Balance 1380 / 1380
Physical Exam
Physical Exam
General: No acute distress, AAOX3
Neck: Negative JVD
Heart: Regular, Negative S3 positive S1/S2, Negative S4, No murmur
Lungs: CTA b/l, negative wheezes/rales/rhonchi
Abd: Positive BS, NT/ND, neg rebound/rigidity/guarding
Ext: Negative cyanosis/clubbing/edema
Neuro: nonfocal
[2025-01-04] MEDS: TOPROL XL 25 MG PO (10:28)
[2025-01-04 11:10] VITALS: BP 144/63
--- NOTE | 2025-01-04 11:14 | W.PN.HOSP.TC ---
Today's Communication/Plan
-
Assessment / Plan
Assessment / Plan
NAD
Scleral Anicteric
MMM
No JVD
CTABL
RRR, S1/S2
Soft, NT, ND, BS+
Warm, Dry
AAOx3
Calm
Chest pain, resolved after receiving aspirin in the ED. Being treated as NSTEMI on IV heparin drip
Cardiology plans for [facility] Sunday
2D echocardiogram
Continue statin aspirin
NSTEMI
EKGs with troponin elevation
Telemetry
2D echo
[facility]
Cardiology
Bradycardic overnight
Discussed this with cardiology
Continue beta-alex with holding parameters to hold for heart rate less than 45
Hyperlipidemia
Continue statin
Diabetes
Accu-Chek sliding scale goal blood glucose 140-180
Hypertension
Continue antihypertensives
Gout
Continue allopurinol
Anticipated Discharge: 24 - 48 hours
Subjective/Interval History
-
Date of Service: January 04, 2025
Seen and examined. No new complaints. No acute overnight events.
Objective Data
-
Labs:
Laboratory Results
01/04/25 01/04/25
05:33 14:30
WBC 17.5 H
Hgb 14.4
Hct 40.8
Plt Count 335
APTT 113.5 H Pending
Sodium 137
Potassium 4.3
Chloride 111 H
Carbon Dioxide 21 L
BUN 38 H
Creatinine 0.9
Glucose 107 H
Calcium 9.0
Vital Signs:
Vital Signs
Temp Pulse Resp BP Pulse Ox
97.9 F 62 18 144/63 95
01/04/25 11:10 01/04/25 11:10 01/04/25 11:10 01/04/25 11:10 01/04/25 11:10
I&O
01/03/25 01/04/25 01/05/25
06:59 06:59 06:59
Intake Total 1380 / 1380
Balance 1380 / 1380
--- NOTE | 2025-01-04 11:45 | VATNOTE ---
Pt states he has an area of skin in his R antecubital fossa where a phlebotomy stick was done which has what appears to be a skin tear that has become red and painful. Spoke with PCN and was made aware by PCN and looked at the site with no
further orders. Heat applied to site for pt comfort.
[2025-01-04 11:52] LABS: Glucose - Point of Care 97 mg/dl (70-99)
[2025-01-04 14:52] LABS: APTT 102.4 Sec (23.4-35.0)
[2025-01-04 15:18] VITALS: BP 143/59
[2025-01-04 16:41] LABS: Glucose - Point of Care 107 mg/dl (70-99)
--- NOTE | 2025-01-04 18:00 | PTCARENOTE ---
Pt received at 1620 from the 4th floor. Heparin infusing as ordered. Denies any chest pain or sob. OOB ad mercy in the room. SR, rate in the 50's to 60's.
[2025-01-04 19:57] VITALS: BP 134/81
[2025-01-04] MEDS: LIPITOR 80 MG PO (20:57)
[2025-01-04 21:25] LABS: APTT 89.4 Sec (23.4-35.0)
[2025-01-04 22:05] VITALS: BP 145/90
[2025-01-04 22:10] LABS: Glucose - Point of Care 90 mg/dl (70-99)
[2025-01-05] VITALS (14 sets, daily range): BP systolic 101–144; BP diastolic 48–75; BMI 34.7
[2025-01-05] MEDS: HEPARIN 25000 UNITS/250 ML IV (00:43)
--- NOTE | 2025-01-05 03:42 | PTCARENOTE ---
Pt NSR on monitor, Denies pain or discomfort. Own CPAP at HS. Heparin gtt per protocol. NPO for cath in am. call mao in reach
[2025-01-05 04:12] LABS: Hematocrit 41.5 % (39.0-52.0); Hemoglobin 14.5 g/dL (13.0-18.0); Mean Corp Hgb Conc. 34.9 g/dL (33.0-37.0); Mean Corpuscular Hgb 30.4 pg (27.0-31.0); Mean Platelet Volume 10.2 fL (7.4-10.4); Platelet Count 311 10^3/uL (130-400); Red Blood Cell Count 4.77 10^6/uL (4.70-6.10); Red Cell Dist. Width 13.3 % (11.5-14.5); White Blood Cell Count 13.4 10^3/uL (4.8-10.8)
[2025-01-05 04:20] LABS: APTT 113.6 Sec (23.4-35.0)
[2025-01-05 04:24] LABS: Blood Urea Nitrogen 35 mg/dl (9-20); Carbon Dioxide 19 mmol/L (22-30); Chloride 112 mmol/L (98-107); Estimated Creatinine Clearance 94 ml/min; Glucose 112 mg/dl (70-99); Potassium 4.6 mmol/L (3.5-5.1); Sodium 136 mmol/L (135-145); eGFR > 60.00
[2025-01-05 06:55] LABS: Glucose - Point of Care 93 mg/dl (70-99)
[2025-01-05] MEDS: TOPROL XL 25 MG PO (07:55)
[2025-01-05] MEDS: ZYLOPRIM 300 MG PO (07:56)
[2025-01-05] MEDS: LOW STRENGTH ASPIRIN 81 MG PO (07:56)
[2025-01-05] MEDS: ZESTRIL 40 MG PO (07:56)
[2025-01-05] MEDS: NORVASC 10 MG PO (07:56)
--- NOTE | 2025-01-05 08:00 | PTCARENOTE ---
Assumed care. Patient awake and alert sitting in chair. Denies pain, palpitations or shortness of breath. NSR HR 72. Medications given with a small sip of water, Heparin gtt at 1100 units/hr. NPO for heart cath today
--- NOTE | 2025-01-05 09:22 | PTCARENOTE ---
Addendum entered by Damian Burnette RN 01/05/25 09:25:
Assumed care. Patient awake and alert sitting in chair. Denies pain, palpitations or shortness of breath. NSR HR 72-45. Medications given with a small sip of water, Heparin gtt at 1100 units/hr. NPO for heart cath today
Original Note:
Assumed care. Patient awake and alert sitting in chair. Denies pain, palpitations or shortness of breath. NSR HR 72. Medications given with a small sip of water, Heparin gtt at 1100 units/hr. NPO for heart cath today
--- NOTE | 2025-01-05 09:26 | W.PN.HOSP.TC ---
Today's Communication/Plan
-
.
Assessment / Plan
Assessment / Plan
Physical Exam
-
General: Well Developed and Well Nourished
HEENT: Moist Mucous Membranes, Anicteric and PERRLA
Respiratory: Clear to Auscultation and Non-Labored Respirations; Negative Wheezes, Rales or Rhonchi
Cardiac: Regular Rhythm and S1/S2;
GI: Soft, Nontender, Nondistended and Normal Bowel Sounds
Musculoskeletal: No joint swelling. �Negative Edema, Left Lower Extrem
Skin: Warm, Dry and no rash
Neuro: Awake and AO x 3, non-focal exam.
Psych: Calm
Chest pain, resolved after receiving aspirin in the ED. Being treated as NSTEMI on IV heparin drip
Cardiology plans for [facility] Sunday
2D echocardiogram
Continue statin aspirin
NSTEMI
EKGs with troponin elevation
Telemetry
2D echo
[facility]
Cardiology is following
Leukocytosis, resolving
Afebrile
Bradycardic overnight
Discussed this with cardiology
Continue beta-alex with holding parameters to hold for heart rate less than 45
Mild lactic acidosis
Hyperlipidemia
Continue statin
Diabetes
Accu-Chek sliding scale goal blood glucose 140-180
Hypertension
Continue antihypertensives
Gout
Continue allopurinol
Total time spent to see the patient, examine the patient, review data and lab result, discuss treatment plan with patient, nursing staff around 55 minutes
Anticipated Discharge: 24 - 48 hours
Subjective/Interval History
-
Date of Service: January 05, 2025
Objective Data
-
Labs:
Laboratory Results
01/05/25 01/05/25
03:35 11:00
WBC 13.4 H
Hgb 14.5
Hct 41.5
Plt Count 311
APTT 113.6 H Pending
Sodium 136
Potassium 4.6
Chloride 112 H
Carbon Dioxide 19 L
BUN 35 H
Creatinine 0.8
Glucose 112 H
Calcium 9.0
Vital Signs:
Vital Signs
Temp Pulse Resp BP Pulse Ox
98.4 F 45 18 132/71 98
01/05/25 06:54 01/05/25 09:15 01/05/25 06:54 01/05/25 06:53 01/05/25 06:54
I&O
01/04/25 01/05/25 01/06/25
06:59 06:59 06:59
Intake Total 1380 / 1380
Balance 1380 / 1380
[2025-01-05 11:42] LABS: APTT 69.3 Sec (23.4-35.0)
[2025-01-05 11:42] LABS: Glucose - Point of Care 87 mg/dl (70-99)
--- NOTE | 2025-01-05 12:11 | PTCARENOTE ---
Report called to the oven laborer, IV heparin stopped prior to procedure.
[2025-01-05 13:22] LABS: ACT-LR - POC 265 Seconds (116-155)
[2025-01-05 13:35] LABS: ACT-LR - POC 380 Seconds (116-155)
[2025-01-05 13:55] LABS: ACT-LR - POC 318 Seconds (116-155)
--- NOTE | 2025-01-05 14:19 | PTCARENOTE ---
Patient received from the greenskeeper laborer, raciel pain free, SB HR 50, BP 101/69, POX 98% on right index finger, right radial band intact with 11 cc of air. Precautions received with patient, EKG completed, lunch ordered, call mao in reach
--- NOTE | 2025-01-05 14:33 | ITS.CL.CATH ---
Division Engineer - Catheterization
Cardiac Catheterization
Procedure Report:
LEFT HEART CATHETERIZATION AND CORONARY INTERVENTION
Date of Procedure: January 06, 2024
Referring: Candace Beasley
PROCEDURES:
1. Left heart catheterization, coronary angiogram.
2. Moderate sedation.
3. Functional physiologic testing of ostial left circumflex.
4. Functional physiologic testing of ostial OM1.
5. Functional physiologic testing of mid LAD.
6. Intravascular ultrasound of left main.
7. Successful percutaneous coronary artery intervention of IFR positive ostial OM1 stenosis (iFR 0.87) with one 2.5 x 15 mm Medtronic Avinash drug-eluting stent, postdilated using IVUS guidance with a 2.5 x 8 mm NC balloon at 18 ivette distally and 24
ivette proximally with an excellent angiographic and IVUS based result without evidence of proximal or distal stent edge dissections.
8. Intravascular ultrasound of OM1 stent.
INDICATION: Concern for unstable angina
ACCESS: Right radial artery, 6Fr. sheath, under US guidance.
HEMODYNAMICS : (mmHg)
AO (s/d) : 124/70
LVEDP : 16
No significant gradient across the aortic valve to suggest aortic stenosis.
CORONARY FINDINGS
Dominance: Left
Left Main Trunk (LMT): Large caliber vessel that gives rise to the LAD and LCx branches. Proximal portion of left main has eccentric 20 to 30% calcified stenosis. IVUS was performed showing minimal luminal area more than 6 mm�.
Left Anterior Descending Artery (LAD): Large caliber vessel that gives off 3 small caliber major diagonal branches as it courses along the anterior inter-ventricular groove before wrapping around the cardiac apex. Mid LAD just to the level of D2
takeoff has 50% stenosis which was IFR negative at 0.92.
Left Circumflex Artery (LCx): Large caliber vessel that gives off 1 major branching obtuse marginal (OM) branch, medium caliber left posterolateral branch and a small caliber left PDA as it courses along the atrio-ventricular (AV) groove. There is
an eccentric 50% ostial left circumflex stenosis. There is 60 to 70% ostial OM1 in-stent restenosis which appears possibly hazy and only 1 view. iFR was performed of ostial left circumflex and OM1. Ostial left circumflex IFR was negative at 0.98.
Ostial OM1 IFR was positive at 0.87 and therefore intervention was performed as noted below.
Right Coronary Artery (RCA): Small caliber nondominant vessel without obstructive coronary artery disease.
HEMODYNAMIC ASSESSMENT OF THE OSTIAL LEFT CIRCUMFLEX, OM1, MID LAD WITH A Anapsis OMNI WIRE: The origin of the left coronary was cannulated with a 6 Fr EBU 3.5 guide catheter. Intravenous heparin was administered and the ACT was followed during the
procedure. Two hundred micrograms of intracoronary nitroglycerin was given through the guide catheter. A Beem Omni wire was advanced to the guide catheter tip and normalized just outside the guide catheter. The Omni wire was then carefully
manipulated across the stenosis in the ostial left circumflex with the iFR above the ischemic threshold serially measuring 0.98 x 3. The Omni wire was then pulled back to the guide catheter where the Pd/Pa measured 1.0 confirming no baseline drift
in pressure readings. We then re-normalized just outside of the guide catheter and carefully manipulated across the stenosis in ostial OM 1 with iFR below the ischemic threshold serially measuring 0.87, 0.89, 0.89. The Omni wire was then pulled
back to the guide catheter where the Pd/Pa measured 1.0 confirming no baseline drift in pressure readings. The wire was re-normalized again just outside of the guide catheter and carefully manipulated across the stenosis in mid LAD with iFR above
the ischemic threshold measuring 0.92. Given IFR has not been validated for left main disease with a 20 to 30% calcified eccentric stenosis in the proximal portion of the left main decision was made to proceed with IVUS over the IFR wire of the
left main as noted below.
IVUS of Left Main: Given eccentric 20 to 30% calcified stenosis in the proximal portion of left main with intermittent ventricularization depending on guide position, decision was made to proceed with intravascular ultrasound using a [place] IVUS
[place] eye catheter over the IFR wire to confirm that there was no obstructive stenosis there prior to consideration for intervention with PCI of ostial OM1 stenosis. IVUS confirmed a minimal luminal area more than 6 mm� with 20% calcified plaque
present.
CORONARY INTERVENTION: Decision was made to proceed with OM1 percutaneous coronary artery intervention. Additional heparin was given to maintain a therapeutic ACT throughout the case. We predilated the lesion with a 2.5 x 12 mm semicompliant
balloon with full expansion. We subsequently stented the lesion using a 2.5 x 15 mm Medtronic [place] drug-eluting stent and postdilated based on IVUS guidance with a 2.5 x 8 mm NC balloon at 18 ivette distally and 24 ivette proximally with an excellent
angiographic and IVUS based result. YONG-3 flow was noted into the distal vessel with no acute complications. Patient tolerated the procedure well and was loaded with 600 mg of Plavix at the end of the case.
SEDATION: 87 minutes of procedural sedation was utilized. IV Midazolam and IV Fentanyl were administered. An independent medical front desk specialist was present to assist with and help manage the patient's level of consciousness and physiologic status.
RADIATION SUMMARY: Fluoro Time (min): 16.8, Dose (mGy): 1155.16, DAP (Gy.cm2) : 65.2
Closure Device: There were no immediate intra-procedural complications. The sheath was pulled in the supervisor labor gang and a vascular-band applied to the right wrist for radial artery hemostasis using the patent hemostasis technique.
CONCLUSIONS
1. Successful percutaneous coronary artery intervention of IFR positive ostial OM1 stenosis (iFR 0.87) with one 2.5 x 15 mm Medtronic Avinash drug-eluting stent, postdilated using IVUS guidance with a 2.5 x 8 mm NC balloon at 18 ivette distally and 24
ivette proximally with an excellent angiographic and IVUS based result without evidence of proximal or distal stent edge dissections.
2. 20% proximal left main calcified eccentric stenosis. IVUS confirmed a minimal luminal area more than 6 mm� with 20% calcified plaque present in proximal left main.
3. IFR negative ostial left circumflex 50% stenosis at 0.98.
4. IFR negative mid LAD 50% stenosis at 0.92.
5. Mildly elevated LVEDP at 16 mmHg.
RECOMMENDATIONS
1. Wean radial band per protocol. Monitor right hand perfusion and for bleeding from the radial site following removal of the vascular-band following trans-radial access.
2. Continue aggressive medical therapy and risk factor modification for secondary CAD prevention.
3. Continue ASA 81 mg daily for life.
4. Continue Plavix for at least 12 months of uninterrupted dual anti-platelet therapy given drug-eluting stent (UDAY) implantation to mitigate the risk of stent thrombosis. This is not to be stopped for any reason without the guidance of a
wildlife control operator.
5. Hydrate with normal saline to mitigate the risk of contrast-induced acute kidney injury.
6. Referral for outpatient cardiac rehab.
7. Follow-up with Dr. Hussain Turner.
Copy to: Candace Beasley
Ashli Beatty MD, [facility]
--- NOTE | 2025-01-05 14:51 | CM ---
Chart reviewed. Patient is independent of ADLS, lives with his and daughter in a 2 [address], 0 CARMEN, 0 DME. Patient does have a CPAP machine at home. Plan is for the patient to return home. CM to follow
[2025-01-05 18:00] LABS: Glucose - Point of Care 133 mg/dl (70-99)
--- NOTE | 2025-01-05 18:23 | PTCARENOTE ---
TR band removed, dry sterile dressing placed
[2025-01-05] MEDS: LIPITOR 80 MG PO (20:02)
[2025-01-05] MEDS: TYLENOL 650 MG PO (20:02)
[2025-01-05 21:44] LABS: Glucose - Point of Care 102 mg/dl (70-99)
[2025-01-06 03:15] VITALS: BP 145/59
[2025-01-06 03:29] VITALS: BMI 34.5
[2025-01-06 03:50] LABS: Hematocrit 40.7 % (39.0-52.0); Hemoglobin 14.2 g/dL (13.0-18.0); Mean Corp Hgb Conc. 34.9 g/dL (33.0-37.0); Mean Corpuscular Hgb 30.3 pg (27.0-31.0); Mean Corpuscular Volume 86.8 fL (80.0-94.0); Mean Platelet Volume 10.2 fL (7.4-10.4); Platelet Count 288 10^3/uL (130-400); Red Blood Cell Count 4.69 10^6/uL (4.70-6.10); Red Cell Dist. Width 13.3 % (11.5-14.5); White Blood Cell Count 13.6 10^3/uL (4.8-10.8)
[2025-01-06 04:12] LABS: Blood Urea Nitrogen 32 mg/dl (9-20); Carbon Dioxide 17 mmol/L (22-30); Chloride 112 mmol/L (98-107); Estimated Creatinine Clearance 94 ml/min; Glucose 115 mg/dl (70-99); Potassium 4.7 mmol/L (3.5-5.1); Sodium 136 mmol/L (135-145); eGFR > 60.00
--- NOTE | 2025-01-06 06:03 | PTCARENOTE ---
pt NSR on monitor, VSS. C/o mild discomfort on right wrist cath site. Tylenol PRN given. Pt independent in the room. call mao in reach
[2025-01-06 07:31] VITALS: BP 130/51
[2025-01-06 07:35] LABS: Glucose - Point of Care 111 mg/dl (70-99)
[2025-01-06] MEDS: ZYLOPRIM 300 MG PO (08:21)
[2025-01-06] MEDS: PLAVIX 75 MG PO (08:21)
[2025-01-06] MEDS: TOPROL XL 25 MG PO (08:21)
[2025-01-06] MEDS: LOW STRENGTH ASPIRIN 81 MG PO (08:21)
[2025-01-06] MEDS: NORVASC 10 MG PO (08:21)
[2025-01-06] MEDS: ZESTRIL 40 MG PO (08:22)
--- NOTE | 2025-01-06 09:15 | W.PN.HOSP.TC ---
Today's Communication/Plan
-
dc if ok with cardiology
Assessment / Plan
Assessment / Plan
Physical Exam
-
General: Well Developed and Well Nourished
HEENT: Moist Mucous Membranes, Anicteric and PERRLA
Respiratory: Clear to Auscultation and Non-Labored Respirations; Negative Wheezes, Rales or Rhonchi
Cardiac: Regular Rhythm and S1/S2;
GI: Soft, Nontender, Nondistended and Normal Bowel Sounds
Musculoskeletal: No joint swelling. �Negative Edema, Left Lower Extrem
Skin: Warm, Dry and no rash
Neuro: Awake and AO x 3, non-focal exam.
Psych: Calm
Chest pain, resolved after receiving aspirin in the ED. status posttreatment as NSTEMI, received IV heparin drip
Status post left heart catheterization by Dr. Beatty on 01/05/25 with successful angioplasty of OM 1
Recommend to continue aspirin and Plavix for 12 months then aspirin daily for life. Outpatient follow-up with cardiology
2D echo showed LVEF 60 to 65% with normal right ventricular size and function, no significant valvular heart disease. Normal left ventricular size and function, normal regional wall motion.
Cardiology is following,
Leukocytosis, coming down
Afebrile
Clinically not ill or sick looking, he feels better and well
His WBC elevated since 2020, not on records a reason for it. Recommend OP hematology follow up.
Bradycardic overnight
Discussed this with cardiology
Continue beta-alex with holding parameters to hold for heart rate less than 45
# MILLI/ Obesity BMI 34
Mild lactic acidosis
Hyperlipidemia
Continue statin
Diabetes
advised to f/w PCP
Hypertension
Continue antihypertensives
Gout
Continue allopurinol
Total discharge time spent to see the patient, examine the patient, review data and lab result, discuss discharge plan with patient, cardiology, nursing staff around 65 minutes
Anticipated Discharge: Today
Subjective/Interval History
-
Date of Service: January 06, 2025
Doing well
No chest pain or sob , ambulating well
Wants to go home
Objective Data
-
Labs:
Laboratory Results
01/06/25
03:25
WBC 13.6 H
Hgb 14.2
Hct 40.7
Plt Count 288
Sodium 136
Potassium 4.7
Chloride 112 H
Carbon Dioxide 17 L
BUN 32 H
Creatinine 0.8
Glucose 115 H
Calcium 9.0
Vital Signs:
Vital Signs
Temp Pulse Resp BP Pulse Ox
97.7 F 79 18 130/51 98
01/06/25 07:25 01/06/25 08:00 01/06/25 07:25 01/06/25 07:31 01/06/25 07:25
I&O
01/05/25 01/06/25 01/07/25
06:59 06:59 06:59
Intake Total 350 / 350 480 / 480
Balance 350 / 350 480 / 480
[2025-01-06 11:18] VITALS: BP 121/61
[2025-01-06 11:46] LABS: Glucose - Point of Care 182 mg/dl (70-99)
--- NOTE | 2025-01-06 13:24 | W.PN.CARDCBS ---
Addendum entered and electronically signed by Nikki Verma PA-C 01/07/25 12:04:
NSTEMI is not related to restenosis of a previously placed stent. NSTEMI related to new ostial OM�1 disease.
Addendum entered and electronically signed by Geraldo Mei MD 01/06/25 15:15:
I saw and examined the patient on morning rounds.
The Environmental Engineer's note was reviewed and I agree with the note.
Comment: Briefly, 69-year-old man past medical history of coronary artery disease with prior PCI presenting with chest discomfort found to have low-level troponin elevation consistent with NSTEMI
Underwent invasive coronary angiography on 01/05/2025 and found to have in-stent restenosis of the OM1 which was treated with drug-eluting stent
Patient was chest pain-free at the time my evaluation
Recommend dual antiplatelet therapy with aspirin/Plavix x 12 months
High intensity statin
Resume metoprolol which have been discontinued for bradycardia
Continue amlodipine as additional antianginal
Cardiac rehab referral
Stable for discharge from my perspective
Original Note:
Today's Communication / Plan
-
D/c to home today
Impression / Plan
-
.
PCP:Sharron White PA-C
Filtration Supervisor: Hussain Turner
Impression:
Presents 01/02/2025 with chest pain and palpitations
Intermittent chest pain with abnormal troponin
NSTEMI peak trop 0.9
Tachycardia
Leukocytosis
Metabolic acidosis
Uncontrolled hypertension
Coronary artery disease
Status post left circumflex stent July 2007
Status post OM1 UDAY April 2017
Status post 2.5 mm [place] UDAY to and IFR positive ostial OM1 lesion 01/05/2025
Residual ostial circumflex and mid LAD lesions were negative by IFR assessment 01/05/2025
Hypertension
Moderate concentric LVH
Hyperlipidemia
Type 2 diabetes
Obstructive sleep apnea with CPAP
Obesity
Gout
Asthma
Echo 12/30/2024: EF 60 to 65% with no regional wall motion abnormality. Moderate concentric LVH. No significant valvular disease
Echo 01/02/2025: EF 60 to 65%, normal regional wall motion, normal RV size and function, normal pericardium without effusion
Plan:
-Patient came to the hospital with chest pain and was managed as NSTEMI with peak troponin 0.9.
-Patient taken to [facility] 01/05/2025 and had IFR assessments of ostial circumflex, mid LAD and ostial OM1 lesions, but only the ostial OM1 lesion tested positive and this was stented with a 2.5 mm [place] UDAY.
-Patient has taken Plavix in the past and this was restarted and he will continue with his aspirin 81 mg daily
-Patient had previously been on metoprolol, but it was stopped due to bradycardia which is chronic. Patient restarted on Toprol XL 25 mg daily this admission.
-LDL 81 and outpatient dose of atorvastatin 80 mg daily was continued. Will evaluate patient for PCSK9 inhibitor as an outpatient. We could also consider adding Zetia 10 mg daily as an outpatient.
-Outpatient dose of lisinopril 40 mg daily was continued
-Outpatient dose of HCTZ that was a new addition was stopped.
-Outpatient doses of Jardiance and metformin will be restarted to 72 hours post cath
-Cardiac rehab consulted and he is scheduled to begin his sessions in January
-Patient will keep his appointment to see Dr. Turner on 02/02/2025
-Patient is stable for discharge to home, reviewed with Dr. Wright who took care of of E�scribing Toprol-XL and Plavix.
Progress Note - Filtration Supervisor
Subjective
Date of Service: January 06, 2025
He feels well
Objective
Labs:
01/06/25 03:25
01/06/25 03:25
Labs
Hgb 14.2 g/dL (13.0-18.0) 01/06/25 03:25
Hct 40.7 % (39.0-52.0) 01/06/25 03:25
Plt Count 288 10^3/uL (130-400) 01/06/25 03:25
APTT 69.3 Sec (23.4-35.0) H 01/05/25 11:20
Sodium 136 mmol/L (135-145) 01/06/25 03:25
Potassium 4.7 mmol/L (3.5-5.1) 01/06/25 03:25
BUN 32 mg/dl (9-20) H 01/06/25 03:25
Creatinine 0.8 mg/dL (0.7-1.3) 01/06/25 03:25
Glucose 115 mg/dl (70-99) H 01/06/25 03:25
Vital Signs and I&O:
Vital Signs
Temp Pulse Resp BP Pulse Ox
98.3 F 70 16 121/61 98
01/06/25 11:30 01/06/25 12:00 01/06/25 11:30 01/06/25 11:18 01/06/25 11:30
Vital Signs
Temp Pulse Resp BP Pulse Ox
98.3 F 70 16 121/61 98
01/06/25 11:30 01/06/25 12:00 01/06/25 11:30 01/06/25 11:18 01/06/25 11:30
Intake & Output
01/04/25 01/05/25 01/06/25 01/07/25
06:59 06:59 06:59 06:59
Intake Total 1380 / 1380 350 / 350 480 / 480
Balance 1380 / 1380 350 / 350 480 / 480
Physical Exam
Physical Exam
GEN: NAD
LUNGS: RA
CV: SR on tele
--- NOTE | 2025-01-06 14:50 | W.DCSUMMARY ---
Discharge Summary
Discharge Data
Date of Admission: 01/02/25
Date of Discharge: 01/06/25
-
Pending Results: No
Hospital Course
69 years old male presented with chest pain palpitation. He had mildly positive troponin peak at 0.9. Patient was evaluated by plater production. Echocardiogram showed left ventricular ejection fraction of 60 to 65%, normal regional wall motion,
normal right ventricular size and function and no significant valvular heart disease. Patient reported that his beta-alex medication was stopped by his primary care doctor due to concern of bradycardia and he was started on hydrochlorothiazide.
Patient was noted to have tachycardia With metabolic acidosis. He received antiplatelet therapy. He was started on intravenous heparin. Patient was started back on low-dose Toprol. He underwent left heart catheterization with successful
angioplasty of ostial OM1 lesion. No complications reported. Patient was started on dual antiplatelet therapy with intention to continue for 12 months then to continue aspirin indefinitely. Patient was noted to have leukocytosis. He reported
local steroid injection to his left knee. White blood cell count came down but was noted to be mildly elevated for prolonged time, more than 2 years. Patient was advised to discuss that with the primary care physician and to consider hematology
referral if needed. Patient remained hemodynamically stable. He was able to ambulate without shortness of breath, cardiac arrhythmia or chest pain. Patient was discharged home in a stable condition.
Discharge Plan
-
Patient Disposition: Home (Routine Discharge)
Discharge Diagnosis/Procedures: Myocardial infarction: Status post Angioplasty and stent to Obtuse Marginal artery by Dr Beatty on 01/05/25.
Diet: As tolerated and Diabetic, Carb Controlled
Activity: No strenuous activity
Driving Restrictions: No driving for 24 hours
Bathing Restrictions: OK to Shower
Other Services: Cardiac Rehab
Instructions: Clopidogrel, Metoprolol, Lowering your risk of heart disease, Living with coronary artery disease
Stand Alone Forms: DC Instructions- Cath/EP Lab
Referrals:
Hussain Turner DO [Active, Cardiology] - 02/02/25 9:20 am
Sharron White PA-C [Family Provider] - in one to two weeks
Prescriptions:
New
clopidogrel 75 mg Tablet
75 mg PO DAILY Qty: 30 0RF
metoprolol succinate 25 mg Tablet Extended Release 24 Hr
25 mg PO DAILY Qty: 30 0RF
Continued
loratadine [Claritin] 10 MG tablet
10 mg PO DAILY
multivitamin with folic acid [Tab-A-Galilea] 1 TABLET tablet
1 tab PO DAILY
amlodipine 5 MG tablet
10 mg PO DAILY
allopurinol 300 MG tablet
300 mg PO DAILY
lisinopril 40 MG tablet
40 mg PO DAILY
aspirin 81 MG tablet,chewable
81 mg PO DAILY
atorvastatin 40 MG tablet
80 mg PO HS
cyanocobalamin (vitamin B-12) 1,000 mcg Tablet
1,000 mcg PO DAILY
cholecalciferol (vitamin D3) [Vitamin D3] 25 mcg (1,000 unit) Tablet
25 mcg PO DAILY
Held
empagliflozin-metformin 5-500 mg Tablet
1 tab PO BID
Hold Instructions: Resume on 01/08/25.
Discontinued
hydrochlorothiazide 12.5 mg Tablet
12.5 mg PO DAILY
Discharge Orders:
Discharge Patient (As Directed); Ordered 01/06/25
Ordered By: Osvaldo Wright
Care Plan Goals
Care Plan Goals:
Problem: Readiness for enhanced knowledge related to diagnosis and treatment plan
Goal: Understand your diagnosis and treatment plan needs, including medications if applicable.
Instructions: Know your diagnosis, underlying causes and treatment plan options, including medications if applicable. Consult with your health care team to learn about your diagnosis and treatment plan, including medications if applicable.
Discharge Date and Time
Discharge Date/Time: 01/06/25 14:03
Print Language: NAMIBIAN
== END 2025-01-06 14:03 | disposition home or self-care (01) | DRG 322 ==
LOC: IVU 15:09
PROVIDERS: Hospitalist; Internal Medicine Interventional Cardiology; Physician Assistant; Registered Nurse; ADMITTING PHYSICIAN Internal Medicine; ATTENDING PHYSICIAN Internal Medicine; CONSULT PHYSICIAN Internal Medicine Cardiovascular Disease; EMERGENCY PHYSICIAN Student in an Organized Health Care Education/Training Program; FAMILY PHYSICIAN Physician Assistant Medical
PROC: 5A09357 Assistance with Respiratory Ventilation, Less than 24 Consecutive Hours, Continuous Positive Airway Pressure (ICD-10-PCS; 2025-01-05)
PROC: 027034Z Dilation of Coronary Artery, One Artery with Drug-eluting Intraluminal Device, Percutaneous Approach (ICD-10-PCS; 2025-01-05)
PROC: 4A033BC Measurement of Arterial Pressure, Coronary, Percutaneous Approach (ICD-10-PCS; 2025-01-05)
PROC: B2111ZZ Fluoroscopy of Multiple Coronary Arteries using Low Osmolar Contrast (ICD-10-PCS; 2025-01-05)
PROC: 4A023N7 Measurement of Cardiac Sampling and Pressure, Left Heart, Percutaneous Approach (ICD-10-PCS; 2025-01-05)
DX: I21.4 Non-ST elevation (NSTEMI) myocardial infarction (principal); T82.855A Stenosis of coronary artery stent, initial encounter; E87.20 Acidosis, unspecified; E78.00 Pure hypercholesterolemia, unspecified; I10 Essential (primary) hypertension; I25.10 Atherosclerotic heart disease of native coronary artery without angina pectoris; G47.33 Obstructive sleep apnea (adult) (pediatric); J32.9 Chronic sinusitis, unspecified; M10.9 Gout, unspecified; J45.909 Unspecified asthma, uncomplicated; D72.829 Elevated white blood cell count, unspecified; E11.9 Type 2 diabetes mellitus without complications; E86.0 Dehydration; E66.9 Obesity, unspecified; Y83.1 Surgical operation with implant of artificial internal device as the cause of abnormal reaction of the patient, or of later complication, without mention of misadventure at the time of the procedure; Y92.9 Unspecified place or not applicable; Z68.36 Body mass index [BMI] 36.0-36.9, adult; Z91.041 Radiographic dye allergy status; Z79.82 Long term (current) use of aspirin; Z79.84 Long term (current) use of oral hypoglycemic drugs; Z82.49 Family history of ischemic heart disease and other diseases of the circulatory system; Z82.5 Family history of asthma and other chronic lower respiratory diseases
CPT/HCPCS: 93308; 71045; 80048; 80053; 80061; 82962; 83036; 83605; 84484; 85025; 85027; 85347; 85730; 92978; 92979; 93005; 93306; 93458; 93799; 96365; 96366; 96375; 99152; 99153; 99291; C1725; C1753; C1769; C1874; C1894; C9600; Q9967

== ENCOUNTER 2025-01-09 01:15 | Observation (INO) | payer MEDICARE, OTHER, SELFPAY ==
[2025-01-08] VITALS (9 sets, daily range): BP systolic 104–138; BP diastolic 48–73; BMI 36.7
[2025-01-08 20:34] LABS: % Basophils 0.3 % (0-2); % Eosinophils 2.3 % (0-6); % Immature Granulocytes 1.2 % (0-0.5); % Lymphocytes 12.8 % (20.5-51.1); % Monocytes 8.9 % (1.7-9.3); % Neutrophils 74.5 % (42.2-75.2); Absolute Basophils 0.1 10^3/uL (0-0.2); Absolute Eosinophils 0.4 10^3/uL (0-0.7); Absolute Immature Granulocytes 0.2 10^3/uL (0-0.05); Absolute Lymphocytes 2.2 10^3/uL (1.2-3.4); Absolute Monocytes 1.5 10^3/uL (0.1-0.6); Absolute Neutrophils 12.7 10^3/uL (1.4-6.5); Hematocrit 40.3 % (39.0-52.0); Hemoglobin 14.4 g/dL (13.0-18.0); Mean Corp Hgb Conc. 35.7 g/dL (33.0-37.0); Mean Corpuscular Hgb 30.8 pg (27.0-31.0); Mean Corpuscular Volume 86.3 fL (80.0-94.0); Mean Platelet Volume 10.1 fL (7.4-10.4); Nucleated Red Blood Cells % 0 % (-); Platelet Count 294 10^3/uL (130-400); Red Blood Cell Count 4.67 10^6/uL (4.70-6.10); Red Cell Dist. Width 13.4 % (11.5-14.5); White Blood Cell Count 17.1 10^3/uL (4.8-10.8)
--- NOTE | 2025-01-08 20:39 | ED.GENMED ---
History of Present Illness
General
Chief Complaint: Chest Pain
Source: patient and records
Exam Limitations: none
Time Seen by Provider: 01/08/25 20:15
History of Present Illness
History of Present Illness:
69yoM with a history of coronary artery disease, hypertension, hyperlipidemia, and type 2 diabetes presenting with his for evaluation of chest pain. Patient was recently hospitalized for an NSTEMI and had a cardiac catheterization on 01/05/25
with PCI to the ostial OM1 stenosis. He was sitting watching TV this afternoon around 4pm when he started to experience some chest pain. He reports intermittent L sided chest pain. Pain feels like a 'toothache.' Pain lasts about 10 seconds at a
time. Nothing seems to make the pain better or worse. He denies any pain during initial exam. Pain feels different than his recent NSTEMI. He denies any associated shortness of breath, diaphoresis, nausea, vomiting, paresthesias.
Past History
Past History
ED Past Medical History: Asthma, CAD, HTN, Hypercholesterolemia, Other (Sleep apnea) and Other (Chronic sinusitis); Negative NH
ED Past Surgical History: Cardiac (PTCA with stent, 2007) and Orthopedic (Rotator cuff repair 10/2010)
Social History
Tobacco: Non-smoker
Alcohol: None
Personal:
Living: with family
Employment: Employed
Family History
Family History: Hypertension; Negative Early CAD or Sudden
Phy Exam
General Physical Exam
General Presentation: well appearing and no apparent distress
General Skin: warm and dry
General Habitus: normal
General Mental: alert
ENT Exam
ENT Exam: normocephalic
Cardiovascular Exam
Cardiovascular Exam: regular rate/rhythm, no edema, no murmur and normal peripheral pulses (2+ radial pulses bilaterally)
Pulmonary Exam
Pulmonary Exam: lungs clear, no respiratory distress, no rales, no crackles, no rhonchi and no wheezing
Neurological Exam
Neurological Exam: alert
Jd Coma Scale
Eye Opening: Spontaneous
Verbal Response: Oriented
Motor Response: Obeys Commands
GCS Total Score: 15
Skin Exam
Skin Exam: normal color and warm/dry
Psychiatric Exam
Psychiatric Exam: normal mood/affect
Scores
Heart Score for Chest Pain Patients
STEMI patient?: No
History: Moderately Suspicious
ECG: Normal
Age: >/= 65 years
Risk Factors: >/= 3 Risk Factors or History of CAD
Troponin: </= Normal Limit
Heart Score for Chest Pain Patients: 5
Heart Score Risk: 20.3% MACE over next 6 weeks
Course
Orders/Labs/Results
Orders:
Orders
01/08/25 19:28
Electrocardiogram (*1) Urgent
Reason for Study: Chest Pain
EKG- Treatment ONCE
01/08/25 19:34
Cardiac Monitoring- Treatment ONCE
IV Insert/Care/Rem.- Treatment PRN
O2 Therapy [RESP] Urgent
Titrate/Wean O2 to maintain O2 sat greater than (%): 90
Special Instructions: Maintain sats >/=90%
Pulse Ox/spot Check [RESP] Urgent
Quantity: 1
Special Instructions: ON ROOM AIR
01/08/25 20:27
Complete Blood Count/With Diff Urgent
Comprehensive Metabolic Panel Urgent
Troponin I Urgent
01/08/25 21:28
EKG- Treatment ONCE
01/08/25 23:10
Troponin I Urgent
Nitroglycerin Sublingual [Nitrostat (Sublingual)] 0.4 mg SL NOW STA
01/08/25 23:30
Electrocardiogram (*1) Urgent
Reason for Study: Chest Pain
01/08/25 23:51
Aspirin Chewable [Low Strength Aspirin] 243 mg PO NOW STA
01/08/25 23:52
CR Chest - 2 Views Urgent
Comment:
Reason For Exam: CP
Abnormal Lab Results
01/08/25
20:27
WBC 17.1 H 10^3/uL
(4.8-10.8)
RBC 4.67 L 10^6/uL
(4.70-6.10)
Abs Immat Gran (auto) 0.2 H 10^3/uL
(0-0.05)
Absolute Neuts (auto) 12.7 H 10^3/uL
(1.4-6.5)
Absolute Monos (auto) 1.5 H 10^3/uL
(0.1-0.6)
Immature Gran % 1.2 H %
(0-0.5)
Lymphocytes % 12.8 L %
(20.5-51.1)
Chloride 110 H mmol/L
(98-107)
Carbon Dioxide 20 L mmol/L
(22-30)
BUN 24 H mg/dl
(9-20)
Glucose 160 H mg/dl
(70-99)
Total Protein 6.2 L g/dl
(6.3-8.2)
01/08/25 20:27
01/08/25 20:27
Vital Signs
Initial and Last Documented VS:
Initial Vital Signs
Temp Pulse Resp BP Pulse Ox
98.1 F 62 18 131/73 96
01/08/25 19:32 01/08/25 19:32 01/08/25 19:32 01/08/25 19:32 01/08/25 19:32
Last Documented Vital Signs
Temp Pulse Resp BP Pulse Ox
98.1 F 56 15 118/55 99
01/08/25 19:32 01/09/25 00:04 01/08/25 23:45 01/08/25 23:45 01/09/25 00:04
MDM/Problems Addressed
Differential Diagnosis Includes:
69yoM here with chest pain. S/p cardiac cath and PCI 3 days ago. Intermittent L sided chest pain since this evening. Otherwise asymptomatic. No active chest pain on initial exam. VSS. He is well appearing in no distress. Differential diagnosis
includes but is not limited to: angina, Ernard's syndrome, musculoskeletal
Initial ED plan: Check cardiac labs and EKG.
*EKG
Interpreted by ED Provider?: Yes
EKG Intrepretation Date: 01/08/25
Heart Rate: 61
Rate: normal
Rhythm: sinus
Volin: normal axis
Interval: normal interval
QRS Pattern: normal QRS
Ischemia: no ischemia
*Critical Care Note
Total Time (30-74mins, 75-104mins- exclusive of procedures): Not Applicable
Update Note
Update Note:
EKG shows normal sinus rhythm without ischemic changes. Initial troponin within normal limits. Patient started to complain of constant chest pain during his ED stay. Repeat EKG obtained which is unchanged. Second troponin also within normal
limits. He was given a nitroglycerin without any improvement. Given persistent pain, will admit. Cardiology team notified.
ED Attending Note
-
Portions of this chart may have been created with voice recognition software.� Occasional wrong word or��sound alike� substitutions may have occurred due to the inherent limitations of voice recognition software.
Discharge Plan
Departure
Patient Disposition: Admit
Date of Disposition: 01/08/25
Time of Disposition: 23:52
Presentation/result/management discussed w/ accepting MD/DO: Hospitalist
Discharge Problem:
Chest pain
Prescriptions:
No Action
loratadine [Claritin] 10 MG tablet
10 mg PO DAILY
multivitamin with folic acid [Tab-A-Galilea] 1 TABLET tablet
1 tab PO DAILY
amlodipine 5 MG tablet
10 mg PO DAILY
allopurinol 300 MG tablet
300 mg PO DAILY
lisinopril 40 MG tablet
40 mg PO DAILY
aspirin 81 MG tablet,chewable
81 mg PO DAILY
atorvastatin 40 MG tablet
80 mg PO HS
cyanocobalamin (vitamin B-12) 1,000 mcg Tablet
1,000 mcg PO DAILY
cholecalciferol (vitamin D3) [Vitamin D3] 25 mcg (1,000 unit) Tablet
25 mcg PO DAILY
empagliflozin-metformin 5-500 mg Tablet
1 tab PO BID
clopidogrel 75 mg Tablet
75 mg PO DAILY Qty: 30 0RF
metoprolol succinate 25 mg Tablet Extended Release 24 Hr
25 mg PO DAILY Qty: 30 0RF
Referrals:
UNKNOWN - PT DOES,NOT KNOW [Unknown Provider]
Interventions
Interventions:
*Risk Screen - Suicide Last Done: 01/08/25 19:32
*General Assessment Last Done: 01/08/25 22:06
*Neglect/Abuse Screening Last Done: 01/08/25 19:32
*ED- Fall Risk Assessment Last Done: 01/08/25 22:06
*ED COVID-19 Vaccine History Last Done: 01/08/25 22:06
ED- Cardiac Assessment Last Done: 01/08/25 22:09
Discharge Date and Time
Print Language: CITIZEN OF [place]
[2025-01-08 21:08] LABS: ALT (SGPT) 33 U/L (0-50); AST (SGOT) 19 U/L (17-59); Albumin 3.9 g/dl (3.5-5.0); Alkaline Phosphatase 89 U/L (38-126); Blood Urea Nitrogen 24 mg/dl (9-20); Calcium 9.3 mg/dl (8.4-10.2); Carbon Dioxide 20 mmol/L (22-30); Chloride 110 mmol/L (98-107); Glucose 160 mg/dl (70-99); Potassium 4.4 mmol/L (3.5-5.1); Sodium 138 mmol/L (135-145); Total Bilirubin 0.6 mg/dl (0.2-1.3); Total Protein 6.2 g/dl (6.3-8.2); eGFR > 60.00
[2025-01-08 21:09] LABS: Troponin I 0.028 ng/ml
[2025-01-08] MEDS: NITROSTAT (SUBLINGUAL) 0.4 MG SL (23:14)
[2025-01-08 23:53] LABS: Troponin I 0.025 ng/ml
[2025-01-09] VITALS (13 sets, daily range): BP systolic 123–152; BP diastolic 45–65; PULSE 50; BMI 34.8
[2025-01-09] MEDS: LOW STRENGTH ASPIRIN 243 MG PO (00:15)
--- NOTE | 2025-01-09 00:18 | HPS.HSE ---
Family Physician
-
Family Physician: Sharron White PA-C
Chief Complaint
-
Chest pain
History of Present Illness
Disease 69-year-old male with past medical history significant for CAD status post recent coronary stenting 3 days ago, diabetes, hypertension, MILLI on CPAP presenting to the emergency department 3 days after his cath with left-sided chest pain.
Patient reports that the chest pain started about 3 hours prior to coming to the emergency department. It is localized to the left side of the chest. He reports it as ache but states that he does not have any heaviness similar to the chest pain
that he had last week when he came in for the NSTEMI. He denies nausea vomiting diaphoresis or shortness of breath. He denies any changes in his symptoms with exertion. Initially the pain was intermittent but now appears to have been persistent.
After nitroglycerin there was no improvement. He did say about 30 minutes later his pain is down to a 3 out of 10.
He denies any cough. He has no fevers or chills. He denies any ankle swelling. That does not appear to be a pleuritic component.
In the emergency department he was afebrile, blood pressure was 118/55 with a pulse rate of 56 satting 99% on room air. ECG shows sinus bradycardia at rate of [address] or T wave changes. Troponin was down to 0.02 8 repeat was 0.025.
Chest x-ray without any acute infiltrates.
White count was 17, hemoglobin and platelets were normal. Electrolytes were normal. BUN and creatinine were normal.
Medical History
Past Medical History
Past Medical History: Reports Other
Additional Past Medical History:
Coronary artery disease, hypertension, hyperlipidemia, sleep apnea, chronic sinusitis
Past Surgical History: Reports Other
Additional Past Surgical History:
Cardiac stent, rotator cuff repair
Social History
Tobacco: Non-smoker
Alcohol: None
Drug: None
Personal:
Living: With Family
Family History
Family History: Not pertinent
Allergies / Home Medications
Allergies reflects when Allergies were last updated in [facility].
Home Medications with original date entered in [facility]
Allergy/Medication List:
Allergies
Allergy/AdvReac Type Severity Reaction Status Date / Time
Iodinated Contrast Media (IV Allergy sneezed Verified 01/08/25 22:02
Dye, Iodine Containing) for 30
minutes
Home Medications
loratadine 10 mg tablet (Claritin) 10 mg PO DAILY Allergies 01/07/08
multivitamin with folic acid 400 mcg tablet (Tab-A-Galilea) 1 tab PO DAILY Supplement 01/07/08
allopurinol 300 mg tablet 300 mg PO DAILY Gout 05/22/17
amlodipine 5 mg tablet 10 mg PO DAILY Blood Pressure 05/22/17
aspirin 81 mg chewable tablet 81 mg PO DAILY Blood Clot Prevention/Tx 05/22/17
lisinopril 40 mg tablet 40 mg PO DAILY Blood Pressure 05/22/17
atorvastatin 40 mg tablet 80 mg PO HS High Cholesterol 08/27/20
cholecalciferol (vitamin D3) 25 mcg (1,000 unit) tablet (Vitamin D3) 25 mcg PO DAILY Supplement 01/02/25
cyanocobalamin (vitamin B-12) 1,000 mcg tablet 1,000 mcg PO DAILY Supplement 01/02/25
empagliflozin 5 mg-metformin 500 mg tablet 1 tab PO BID Diabetes 01/02/25
Held on 01/06/25. Instructions: Resume on 01/08/25.
clopidogrel 75 mg tablet 75 mg PO DAILY #30 tabs 01/06/25
metoprolol succinate 25 mg tablet,extended release 24 hr 25 mg PO DAILY #30 tabs 01/06/25
Review of Systems
-
Constitutional: Reports No Symptoms
EENT: Reports No Symptoms
Respiratory: Reports No Symptoms
Cardiac: Reports Chest Pain
Abdomen/GI: Reports No Symptoms
: Reports No Symptoms
Musculoskeletal: Reports No Symptoms
Skin: Reports No Symptoms
Neurological: Reports No Symptoms
Endocrine: Reports No Symptoms
Hematologic/Lymphatic: Reports No Symptoms
Psych: Reports No Symptoms
Physical Exam
Vital Signs
Vital Signs
Temp Pulse Resp BP Pulse Ox
98.1 F 56 15 118/55 99
01/08/25 19:32 01/09/25 00:04 01/08/25 23:45 01/08/25 23:45 01/09/25 00:04
Physical Exam
General: Well Developed, Well Nourished and No Apparent Distress
HEENT: NormoCephalic, Moist mucous membranes and Atraumatic
Respiratory: Clear
Cardiac: S1/S2 and Regular Rhythm; No Murmur or Rub
GI: Soft, Non Tender, Non Distended and Normal Bowel Sounds; No Organomegaly
Rectal: Deferred by Provider
Musculoskeletal: No Clubbing, No Cyanosis and No Edema
Skin: No Rash
Neuro: AO x 3 and Nonfocal/grossly intact
Psych: Calm
Laboratory Results
-
01/08/25 20:27
01/08/25 20:27
Laboratory Results
Total Bilirubin 0.6 mg/dl (0.2-1.3) 01/08/25 20:27
AST 19 U/L (17-59) 01/08/25 20:27
ALT 33 U/L (0-50) 01/08/25 20:27
Alkaline Phosphatase 89 U/L (38-126) 01/08/25 20:27
Troponin I 0.025 ng/ml 01/08/25 23:10
Data Reviewed
-
Diagnostic Radiology: Image Personally Visualized and interpreted
Medical Tests (Nuc Med, Echo, EKG etc): Image Personally Visualized and interpreted
Lab Data: Labs Reviewed by me
Old Records: Reviewed
Impression/Plan
-
IMPRESSION:
69-year-old with history of skd-zbnnwdf-pyrfbhxru diabetes, hypertension, hyperlipidemia, CAD status post recent stent on dual antiplatelet therapy presents to the emergency department 3 days after his last cath with stenting with left-sided chest
pain that was initially intermittent and now persistent. Reports that is not associated with nausea vomiting diaphoresis or chest heaviness. No nausea with exertion. Patient still has pain despite aspirin and nitroglycerin and is now at 3 out of
10. His ECG is nonischemic. His troponin is coming down to 0.025 on repeat. Chest x-ray is clear. CBC shows a white count but otherwise unremarkable. Electrolytes are stable and BUN/creatinine are also stable.
PLAN:
Chest pain -atypical chest pain but very high risk, troponin has been coming down it peaked at 0.9 during his last admission now down to 0.028 and 0.025 status post stenting. He is well-appearing and currently in no acute distress. Pain was not
reproducible with palpation.
-Admit to telemetry observation
-Will get D-dimer stat
-Tylenol 1 g now
-Continue to trend troponins 3 hours
-Will continue is aspirin, Plavix statin
- Cardiology notified and consulted
Hypertension
Continue with amlodipine
Continue lisinopril
Continue ROLAND metoprolol 25 mg daily
MILLI
CPAP at bedtime
DVT prophylaxis�Lovenox subcu
CODE STATUS�full code
[2025-01-09] MEDS: TYLENOL 1000 MG PO (00:45)
[2025-01-09 01:36] LABS: D-Dimer < 0.27 ug/mlFEU (0.00-0.50)
[2025-01-09 03:32] LABS: Hematocrit 37.4 % (39.0-52.0); Hemoglobin 13.3 g/dL (13.0-18.0); Mean Corp Hgb Conc. 35.6 g/dL (33.0-37.0); Mean Corpuscular Volume 87.2 fL (80.0-94.0); Platelet Count 252 10^3/uL (130-400); Red Blood Cell Count 4.29 10^6/uL (4.70-6.10); Red Cell Dist. Width 13.5 % (11.5-14.5); White Blood Cell Count 15.2 10^3/uL (4.8-10.8)
[2025-01-09 03:57] LABS: Blood Urea Nitrogen 28 mg/dl (9-20); Carbon Dioxide 18 mmol/L (22-30); Chloride 111 mmol/L (98-107); Estimated Creatinine Clearance 84 ml/min; Glucose 120 mg/dl (70-99); Potassium 4.5 mmol/L (3.5-5.1); Sodium 137 mmol/L (135-145); eGFR > 60.00
[2025-01-09 04:10] LABS: Troponin I 0.022 ng/ml
[2025-01-09 06:38] LABS: Troponin I 0.017 ng/ml
[2025-01-09 07:42] LABS: Glucose - Point of Care 102 mg/dl (70-99)
--- NOTE | 2025-01-09 08:13 | W.PN.HOSP.TC ---
Today's Communication/Plan
-
expect discharge after seen by Cardiology
Assessment / Plan
Assessment / Plan
IMPRESSION:
69-year-old with history of ryc-zomlnno-qncmoknsy diabetes, hypertension, hyperlipidemia, CAD status post recent stent on dual antiplatelet therapy presents to the emergency department 3 days after his last cath with stenting with left-sided chest
pain that was initially intermittent and now persistent.
PLAN:
Chest pain -atypical chest pain
CAD s/p PCI 01/05/25
--not improved with nitro, not reproducible
-Admitted to telemetry observation
-Troponin continued to trend down overnight
-patient chest pain free this morning - I just witnessed patient ambulate hallways with decent pace, no chest pain
-Continue [employer] aspirin, Plavix statin
- Cardiology notified and consulted, expect DC after seen by Cardiology
Hypertension
Continue with amlodipine
Continue lisinopril
Continue ROLAND metoprolol 25 mg daily
MILLI
CPAP at bedtime
NIDDM
-[employer] Metformin
-ISS low
Leukocytosis
-stress reaction likely; patient seems to have chronic leukocytosis
-will need repeat CBC as outpatient - discussed with patient
DVT prophylaxis�Lovenox subcu
CODE STATUS�full code
Anticipated Discharge: Today
Subjective/Interval History
-
Date of Service: January 09, 2025
He is feeling well
States after Tylenol last night he fell asleep, he woke up without any pain. He is very eager for discharge
Objective Data
-
Labs:
Laboratory Results
01/08/25 01/09/25
20:27 03:14
WBC 17.1 H 15.2 H
Hgb 14.4 13.3
Hct 40.3 37.4 L
Plt Count 294 252
Sodium 138 137
Potassium 4.4 4.5
Chloride 110 H 111 H
Carbon Dioxide 20 L 18 L
BUN 24 H 28 H
Creatinine 0.9 0.9
Glucose 160 H 120 H
Calcium 9.3 9.0
Total Bilirubin 0.6
AST 19
ALT 33
Alkaline Phosphatase 89
Vital Signs:
Vital Signs
Temp Pulse Resp BP Pulse Ox
97 F 56 18 124/56 98
01/09/25 07:30 01/09/25 08:00 01/09/25 07:30 01/09/25 07:34 01/09/25 07:30
Review of Systems
-
History Source: Patient
All other systems: Reviewed and negative
Physical Exam
-
General: No Apparent Distress
HEENT: PERRLA
Respiratory: Clear to Auscultation; Negative Wheezes
Cardiac: Regular Rhythm and S1/S2
GI: Soft and Nontender
Musculoskeletal: No Edema
Skin: Warm and Dry; Negative Rash
Neuro: AO x 3
Psych: Calm
Data Reviewed
-
Diagnostic Radiology: Report Reviewed by me
Labs: Labs Reviewed by me
--- NOTE | 2025-01-09 08:23 | CON.CAR ---
Addendum entered and electronically signed by Dakota Sosa MD 01/09/25 11:28:
I saw and examined the patient.
The RESP THERAPIST or PA's note was reviewed and I agree with the note.
Comment: General: Well developed, well nourished in NAD.
Neck: Supple, no JVD, HJR, carotids +2 B/L, no bruits bilaterally.
Heart: Non displaced PMI, RRR, no murmurs, No S3, S4, no rubs.
Lungs: Clear to auscultation bilaterally, no wheeze, rhonchi, rubs bilaterally,
normal expiratory phase.
Abdomen: Normal bowel sounds, soft, non-tender, non-distended.
Extremities: No clubbing, cyanosis or edema bilaterally.
Neuro: Grossly nonfocal, awake, alert and oriented x3.
Angel has a history of OM1 stenting on 01/05/2025, hypertension, diabetes, hyperlipidemia, obesity, sleep apnea, gout, asthma. He had been discharged and had an active day at the [employer] and then went to [facility]. He developed discomfort in the
chest which felt similar to but not the same as his prior angina. He did not have chest heaviness but had pain 3 out of 10. The pain was coming and going every 20 minutes and then was sustained. He came to the ER. He was given nitroglycerin
without relief. He was admitted for the workup. Troponins have been negative. Of note Tylenol relieves the pain
Of note he had prolonged chest pain with negative troponins. Pain felt to be noncardiac. May be musculoskeletal. Stable cardiology status for discharge. Discussed with primary service. Follow-up as been arranged on prior admission.
Original Note:
Consultation
Consultation Request
Date/Time Consultation Requested: 01/09/2025
Date/Time Consultation Performed: 01/09/2025
Requesting Provider: Dr. Winter
Performing Provider: Micheline Russo PA-C for Dr. Sosa
Reason for Consultation: Chest Pain
Medical History
-
History of Present Illness:
HPI: Angel is a 69 year old male with PMH of CAD w/ recent OM1 stenting 01/05, HTN, HLD, DM2, MILLI, Obesity, Gout, and asthma. He was recently admitted 01/02/2025 to 01/06/2025 with NSTEMI and underwent PCI of new ostial OM1 stenosis. He states since
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 He then was resting and developed
chest pain which felt similar to, but not exactly the same as his prior angina. States he had none of the chest heaviness which originally had with NSTEMI. Pain was a 3/10 in severity and was coming and going every 20 minutes or so. Given recurrent
pain, came to ER for evaluation. On arrival to [facility] ER, he was given SL nitro which he states did nothing but drop his BP. Pain worsened somewhat to a 7/10 in severity, and he was given 325mg of aspirin without relief. Later in the evening, he
thought pain may have been more musculoskeletal in nature, so asked for Tylenol which he states took the pain away completely. Troponin checked and was downtrending compared to prior admission. EKG without ischemic changes. He was observed overnight
and has had no recurrent chest pain. He walked around the unit this morning and feels well. No recurrent chest pain noted. Feels well. Has been compliant with his aspirin and Plavix.
Past medical history:
Recent admission 01/02-01/06/25 w/ NSTEMI
CAD
Status post left circumflex stent July 2007
Status post OM1 UDAY April 2017
Status post 2.5 mm Avinash UDAY to and IFR positive ostial OM1 lesion 01/05/2025
Residual ostial circumflex and mid LAD lesions were negative by IFR assessment 01/05/2025
Hypertension
Moderate concentric LVH
Hyperlipidemia
Type 2 diabetes
Obstructive sleep apnea with CPAP
Obesity
Gout
Asthma
Past Medical History
Past Medical History: Other (See HPI)
Past Surgical History: Cardiac (left circumflex stent in July 2007, OM 1 UDAY April 2017, OM 1 UDAY 01/05/2025), Cholecystectomy, Orthopedic (Knee surgeries, right rotator cuff repair) and Other (Hernia repair umbilical, hernia repair inguinal)
Social History
Tobacco: Non-Smoker
Alcohol: None
Drug: None
Personal:
Living: With Family
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
Family History
Family History: CAD (Father UT at 42) and Other (Mother heart failure emphysema)
Allergies / Home Medications
Allergy/AdvReac Type Severity Reaction Status Date / Time
Iodinated Contrast Media (IV Allergy sneezed Verified 01/08/25 22:02
Dye, Iodine Containing) for 30
minutes
�Medication �Instructions �Recorded �Confirmed �Type
loratadine 10 mg tablet (Claritin) 10 mg PO DAILY Allergies 01/07/08 01/08/25 History
multivitamin with folic acid 400 1 tab PO DAILY Supplement 01/07/08 01/08/25 History
mcg tablet (Tab-A-Galilea)
allopurinol 300 mg tablet 300 mg PO DAILY Gout 05/22/17 01/08/25 History
amlodipine 5 mg tablet 10 mg PO DAILY Blood Pressure 05/22/17 01/08/25 History
aspirin 81 mg chewable tablet 81 mg PO DAILY Blood Clot 05/22/17 01/08/25 History
Prevention/Tx
lisinopril 40 mg tablet 40 mg PO DAILY Blood Pressure 05/22/17 01/08/25 History
atorvastatin 40 mg tablet 80 mg PO HS High Cholesterol 08/27/20 01/08/25 History
cholecalciferol (vitamin D3) 25 25 mcg PO DAILY Supplement 01/02/25 01/08/25 History
mcg (1,000 unit) tablet (Vitamin
D3)
cyanocobalamin (vitamin B-12) 1,000 mcg PO DAILY Supplement 01/02/25 01/08/25 History
1,000 mcg tablet
empagliflozin 5 mg-metformin 500 1 tab PO BID Diabetes 01/02/25 01/08/25 History
mg tablet
Held on 01/06/25.
Instructions: Resume on
01/08/25.
clopidogrel 75 mg tablet 75 mg PO DAILY #30 tabs 01/06/25 01/08/25 Rx
metoprolol succinate 25 mg 25 mg PO DAILY #30 tabs 01/06/25 01/08/25 Rx
tablet,extended release 24 hr
Review of Systems
-
History Source: Patient
All other systems: Negative unless noted
Physical Exam
Vital Signs
Temp Pulse Resp BP Pulse Ox
97 F 56 18 124/56 98
01/09/25 07:30 01/09/25 08:00 01/09/25 07:30 01/09/25 07:34 01/09/25 07:30
Lab Results
01/09/25 03:14
01/09/25 03:14
Troponin I 0.017 ng/ml 01/09/25 05:45
Physical Exam
General: Well Developed, Well Nourished and No Apparent Distress
HEENT: Normocephalic, Anicteric and Moist Mucous Membranes
Respiratory: Clear and Non Labored Respirations
Cardiac: S1/S2 and Regular Rhythm
Musculoskeletal: No Clubbing, No Cyanosis and No Edema
Skin: Warm and Dry
Neuro: AO x 3 and Nonfocal/Grossly Intact
Psych: Calm
Impression / Plan
-
PCP: Sharron White PA-C
Health Services Director: Dr. Turner
Impression:
Presented with chest pain
Recent admission 01/02-01/06/25 w/ NSTEMI
CAD
Status post left circumflex stent 07/2007
Status post OM1 UDAY 04/2017
Status post 2.5 mm Avinash UDAY to and IFR positive ostial OM1 lesion 01/05/2025
Residual ostial circumflex and mid LAD lesions were negative by IFR assessment 01/05/2025
Hypertension
Moderate concentric LVH
Hyperlipidemia
Type 2 diabetes
Obstructive sleep apnea with CPAP
Obesity
Gout
Asthma
Echo 12/30/2024: EF 60 to 65% with no regional wall motion abnormality. Moderate concentric LVH. No significant valvular disease
Echo 01/02/2025: EF 60 to 65%, normal regional wall motion, normal RV size and function, normal pericardium without effusion
Plan:
-Presented with recurrent chest pain after recent PCI 01/05. No improvement after SL nitro or aspirin, however resolved w/ tylenol.
-No recurrent pain overnight. Ambulating the halls without difficulty.
-Troponin downtrending from earlier this week.
-EKG reviewed. SR with no acute ischemic changes.
-Echo 01/02 with preserved EF as noted above. No need to repeat at this time.
-Continue aspirin, Plavix without interruption.
-BP stable. Continue amlodipine, Toprol, and lisinopril.
-Continue high intensity statin.
-OK for discharge. Follow up arranged.
HPI: Angel is a 69 year old male with PMH of CAD w/ recent OM1 stenting 01/05, HTN, HLD, DM2, MILLI, Obesity, Gout, and asthma. He was recently admitted 01/02/2025 to 01/06/2025 with NSTEMI and underwent PCI of new ostial OM1 stenosis. He states since
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 He then was resting and developed
chest pain which felt similar to, but not exactly the same as his prior angina. States he had none of the chest heaviness which originally had with NSTEMI. Pain was a 3/10 in severity and was coming and going every 20 minutes or so. Given recurrent
pain, came to ER for evaluation. On arrival to [facility] ER, he was given SL nitro which he states did nothing but drop his BP. Pain worsened somewhat to a 7/10 in severity, and he was given 325mg of aspirin without relief. Later in the evening, he
thought pain may have been more musculoskeletal in nature, so asked for Tylenol which he states took the pain away completely. Troponin checked and was downtrending compared to prior admission. EKG without ischemic changes. He was observed overnight
and has had no recurrent chest pain. He walked around the unit this morning and feels well. No recurrent chest pain noted. Feels well. Has been compliant with his aspirin and Plavix.
Data Reviewed
-
EKG: Tracing Personally Visualized and interpreted
Labs: Labs Reviewed by me
Old Records: Reviewed
--- NOTE | 2025-01-09 08:47 | W.DS.TRANS ---
DC Summary - Validation Analyst
-
Discharge Instructions:
Discharge Diagnosis/Procedures atypical chest pain, likely musculoskeletal
Diet Low Cholesterol
Activity As tolerated
Driving Restrictions As prior to admission
Bathing Restrictions None
Instructions:
Stand-Alone Forms:
Changes to Home Medications: No
Discharge Medications:
DC Medications w/original date entered in [employer]
loratadine 10 mg tablet (Claritin) 10 mg PO DAILY Allergies 01/07/08
multivitamin with folic acid 400 mcg tablet (Tab-A-Galilea) 1 tab PO DAILY Supplement 01/07/08
allopurinol 300 mg tablet 300 mg PO DAILY Gout 05/22/17
amlodipine 5 mg tablet 10 mg PO DAILY Blood Pressure 05/22/17
aspirin 81 mg chewable tablet 81 mg PO DAILY Blood Clot Prevention/Tx 05/22/17
lisinopril 40 mg tablet 40 mg PO DAILY Blood Pressure 05/22/17
atorvastatin 40 mg tablet 80 mg PO HS High Cholesterol 08/27/20
cholecalciferol (vitamin D3) 25 mcg (1,000 unit) tablet (Vitamin D3) 25 mcg PO DAILY Supplement 01/02/25
cyanocobalamin (vitamin B-12) 1,000 mcg tablet 1,000 mcg PO DAILY Supplement 01/02/25
empagliflozin 5 mg-metformin 500 mg tablet 1 tab PO BID Diabetes 01/02/25
clopidogrel 75 mg tablet 75 mg PO DAILY #30 tabs 01/06/25
metoprolol succinate 25 mg tablet,extended release 24 hr 25 mg PO DAILY #30 tabs 01/06/25
Home Medication Changes
Pending Results: No
[2025-01-09] MEDS: FARXIGA 10 MG PO (09:38)
[2025-01-09] MEDS: TOPROL XL 25 MG PO (09:39)
[2025-01-09] MEDS: ZYLOPRIM 300 MG PO (09:39)
[2025-01-09] MEDS: GLUCOPHAGE 500 MG PO (09:40)
[2025-01-09] MEDS: CLARITIN 10 MG PO (09:40)
[2025-01-09] MEDS: LOW STRENGTH ASPIRIN 81 MG PO (09:40)
[2025-01-09] MEDS: NORVASC 10 MG PO (09:40)
[2025-01-09] MEDS: VITAMIN B-12 1000 MCG PO (09:40)
[2025-01-09] MEDS: PLAVIX 75 MG PO (09:41)
[2025-01-09] MEDS: ZESTRIL 40 MG PO (09:41)
--- NOTE | 2025-01-09 09:59 | PTCARENOTE ---
pt offers no complaints at this time. iv and tele removed. d/c instructions read to pt and pts verbalized understanding. pt left w/ belongings from room. pt left via wheelchair w/ staff member.
--- NOTE | 2025-01-09 10:32 | CM ---
Chart reviewed. Patient is independent of ADLS, lives with his and daughter. Plan is for the patient to return home.
--- NOTE | 2025-01-09 13:44 | W.DCSUMMARY ---
Discharge Summary
Discharge Data
Date of Admission: 01/09/25
Date of Discharge: 01/09/25
-
Pending Results: No
Hospital Course
Discharging Physician : Dr. Joan Booth
Disposition : Home
Primary care physician : Dr. Sharron White
Principal Discharge diagnosis : Atypical chest pain
Hospital Course :
Mr. Angel Greene is a 69 yo man with hx [id number] diabetes, hypertension, hyperlipidemia, CAD status post recent PCI three days prior presents to the emergency department with chest discomfort. Pain did not improve with nitro, it was
not reproducible on exam. Triage vitals stable. Labs with continued downtrending Troponin from last admission. Patient was maintained on home cardiac regimen. The following day patient reported that he fell asleep post Tylenol and woke up
without any pain. He ambulated the unit without any chest pain. Seen by Cardiology and cleared for discharge.
He has follow up arranged from prior admission.
Time spent on discharge was 31 minutes.
Important imaging findings :
CXR
IMPRESSION:
Small thin horizontal linear density within the left lower lung on the frontal view laterally, most likely a small linear scar, although could also be linear atelectasis.
No evidence of consolidation. Cardiac silhouette and vascular markings appear within normal limits.
Procedure findings :
Discharge Plan
-
Patient Disposition: Home (Routine Discharge)
Discharge Diagnosis/Procedures: atypical chest pain, likely musculoskeletal
Diet: Low Cholesterol
Activity: As tolerated
Driving Restrictions: As prior to admission
Bathing Restrictions: None
Referrals:
Hussain Turner DO [Active, Cardiology] - 02/02/25 9:20 am
Referral Note: You have a follow up visit with Dr. Turner at the [facility]. Please call with questions.
Sharron White PA-C [Family Provider] - in less than 1 week
Prescriptions:
Continued
loratadine [Claritin] 10 MG tablet
10 mg PO DAILY
multivitamin with folic acid [Tab-A-Galilea] 1 TABLET tablet
1 tab PO DAILY
amlodipine 5 MG tablet
10 mg PO DAILY
allopurinol 300 MG tablet
300 mg PO DAILY
lisinopril 40 MG tablet
40 mg PO DAILY
aspirin 81 MG tablet,chewable
81 mg PO DAILY
atorvastatin 40 MG tablet
80 mg PO HS
cyanocobalamin (vitamin B-12) 1,000 mcg Tablet
1,000 mcg PO DAILY
cholecalciferol (vitamin D3) [Vitamin D3] 25 mcg (1,000 unit) Tablet
25 mcg PO DAILY
empagliflozin-metformin 5-500 mg Tablet
1 tab PO BID
clopidogrel 75 mg Tablet
75 mg PO DAILY Qty: 30 0RF
metoprolol succinate 25 mg Tablet Extended Release 24 Hr
25 mg PO DAILY Qty: 30 0RF
Discharge Orders:
Discharge Patient (As Directed); Ordered 01/09/25
Ordered By: Joan Booth
Care Plan Goals
Care Plan Goals:
Problem: Readiness for enhanced knowledge related to diagnosis and treatment plan
Goal: Understand your diagnosis and treatment plan needs, including medications if applicable.
Instructions: Know your diagnosis, underlying causes and treatment plan options, including medications if applicable. Consult with your health care team to learn about your diagnosis and treatment plan, including medications if applicable.
Discharge Date and Time
Discharge Date/Time: 01/09/25 10:14
Print Language: CITIZEN OF [place]
== END 2025-01-09 10:14 | disposition home or self-care (01) ==
LOC: IVU 01:15
PROVIDERS: Emergency Medicine; Physician Assistant; ADMITTING PHYSICIAN Internal Medicine; ATTENDING PHYSICIAN Student in an Organized Health Care Education/Training Program; EMERGENCY PHYSICIAN Emergency Medicine; FAMILY PHYSICIAN Physician Assistant Medical; OTHER PHYSICIAN Internal Medicine Cardiovascular Disease
DX: R07.89 Other chest pain (principal); R00.1 Bradycardia, unspecified; Z79.02 Long term (current) use of antithrombotics/antiplatelets; Z79.899 Other long term (current) drug therapy; G47.33 Obstructive sleep apnea (adult) (pediatric); I25.10 Atherosclerotic heart disease of native coronary artery without angina pectoris; Z95.5 Presence of coronary angioplasty implant and graft; I10 Essential (primary) hypertension; E11.9 Type 2 diabetes mellitus without complications; Z79.84 Long term (current) use of oral hypoglycemic drugs; D72.829 Elevated white blood cell count, unspecified
CPT/HCPCS: 71046; 80048; 80053; 82962; 84484; 85025; 85027; 85379; 93005; 94660; 99285; G0378